=== PATIENT | female | born 1945 | race African-American/Black ===

== ENCOUNTER 2020-01-12 17:58 | Inpatient (IN) | payer OTHER ==
--- NOTE | 2020-01-12 18:06 | PDOC ---
History of Present Illness - General Chief Complaint: CVA/TIA Stated Complaint: POSSIBLE CVA Time Seen by Provider: 01/12/20 18:05 History Source: Patient Exam Limitations: No Limitations - History of Present Illness Initial Comments: 01/12/20 18:05 HPI 74 YOF with PMH asthma, seasonal allergies and HTN presenting with acute onset of left sided weakness/numbness/tingling described as "pins and needles" beginning approx 1 hour ago, last normal 5pm. at that time she came out of bathroom complaining of dizziness and feeling unwell, blurry vision. she came out and sat down due to her dizziness, her granddaughter found her appearing unwell and eyes in different directions. at 530pm, EMS came and found her to have progressively worsening left upper extremity weakness, pins and needles as well as left lower extremity weakness and difficulty walking. During this time, started leaning more to the left side collateral information from granddaughter and EMS no history of recent procedures no history of CVA or head bleed. no anticoagulant use. Denies fever, chills, chest pain, SOB, palpitation, dizziness, weakness, N, V, D, abdominal pain, bladder and bowel problems, focal weakness/paresthesias, leg swelling/pain, rash. No sick contacts or travel. No new changes in medications. Allergies: None Past Medical History/ asthma, seasonal allergies and HTN PSH: none Social history: Lives with family. No tobacco, ETOH or drug use. Meds: as documented in EMR Family history: noncontributory Review of systems Constitutional: no fevers or chills. +weakness HEENT: no headache No congestion. +dizziness, +blurry vision CVS: no cp or syncope. Resp: no sob. No cough. Gastrointestinal: no abdominal pain, nausea, vomiting, diarrhea. Genitourinary: no urinary sx, hematuria. MUSCULOSKELETAL: No joint pain and swelling. No neck or back pain. SKIN: no redness or skin changes, no discharge, no rash. No wounds. Hematologic: no easy bruising/bleeding. NEUROLOGIC: No headache, LOC or altered mental status. + weakness, numbness, +tingling and gait instability, +dizziness Psych: no anxiety or depression Allergic/Immunologic: medication allergies All other systems reviewed and negative, or as documented in HPI. Physical exam General: malaised appearing HEENT: NCAT, PERRL, EOMI, clear conjunctiva, anicteric, moist mucus membranes, clear oropharynx, no oral lesions.. vision is clear, no diplopia. Neck: neck supple, FROM Resp: CTAB, normal and even respirations, no respiratory distress CVS: irregularly irregular no murmurs, 2+ peripheral pulses throughout, no peripheral edema Abdomen: soft, NTND, no rebound or guarding. Back: nontender, normal inspection and ROM MSK: no edema, LORD x4, ROM intact. No clubbing or cyanosis. normal bulk and tone. Extremities: no calf tenderness Neuro: Alert, oriented to person time and place. No carotid bruit, CN II-XII grossly intact. no overt facial droop, furrowing of forehead present bilaterally. Sensation grossly intact to light touch. LORD x4. No cerebellar signs, no dysmetria, bilateral finger to nose equal and symmetric. Speech clear. +left pronator drift, 4/5 strength against resistance, does hold above gravity. +LLE drift, 3/5 strength, unable to hold against gravity. Psych: Calm and cooperative Skin: warm and well perfused, cap refill <2 sec, normal color, no rash or skin discoloration. 01/12/20 19:00 01/14/20 11:42 Past History - Medical History Allergies/Adverse Reactions: Allergies Allergy/AdvReac Type Severity Reaction Status Date / Time metoprolol succinate Allergy Intermediate Difficulty Verified 09/22/12 03:38 [From Toprol XL] Breathing shellfish derived Allergy Mild Difficulty Verified 09/22/12 03:38 Breathing Home Medications: Ambulatory Orders Albuterol Sulfate Inhaler - [Ventolin Hfa *Inhaler*] 1 - 2 inh IH QID 09/22/12 Cetirizine HCl [Zyrtec] 10 mg PO DAILY 09/22/12 Fluticasone Propionate [Flovent Hfa] 220 mcg IH BID 09/22/12 Ipratropium/Albuterol Sulfate [Duoneb 0.5 mg-3 mg/3 ml Soln] 3 ml IH BID #30 ampul.neb 09/22/12 NIFEdipine XL [Adalat Cc] 90 mg PO DAILY 09/22/12 predniSONE [Deltasone -] 20 mg PO BID #10 tablet 09/22/12 Asthma: Yes HTN: Yes - Immunization History Immunization Up to Date: No - Psycho-Social/Smoking History Smoking Status: No Smoking History: Never smoked Number of Cigarettes Smoked Daily: 0 NIH Stroke Scale - Last Known Well Date/Time & Onset Date Last Known Well: 01/12/20 Time Last Known Well: 17:45 - Initial Evaluation Level of consciousness: Alert Ask patient the month and their age: Answers both correctly Ask patient to open & close eyes; make fist and let go: Obeys both correctly Best gaze (horizontal eye movement): Normal Visual field testing: No visual field loss Facial paresis (Show teeth/raise eyebrows/close eyes tight): Normal symmetrical movement Motor Function: Left Arm: Drift Motor Function: Right Arm: Normal (extends arm 90 (or 45) degrees for 10 seconds without drift Motor Function: Left Leg: Some effort against gravity Motor Function: Right Leg: Normal (extends leg 30 degrees for 5 seconds without drift) Limb Ataxia: No ataxia Sensory(Use pinprick test arms,legs,trunk,face/side to side): Normal Best language (Describe picture, name items, read sentences): No Aphasia Dysarthria (read several words): Normal articulation Extinction and Inattention: No abnormality - Total Score NIH Stroke Scale Score: 3 tPA Exclusion Checklist 0-3hr - Time Elapsed Date last known well: 01/12/20 Time last known well: 17:00 Elaspsed time: 1 Day(s) and 18 Hour(s) and 42 Minutes - Thrombolytic Therapy Candidate Is the patient eligible for Thrombolytic Therapy?: Yes - Exclusion Criteria 0-3hr SBP greater than 185 or DBP greater than 110mmHg despite tx: No Recent IC/spinal surgery,head trauma or stroke w/in last 3mo: No Hx of previous IC hemorrhage, IC neoplasm, AVM or aneurysm: No Active internal bleeding: No Blding diathesis(low plt ct, inc PTT,INR>1.7 or use of NOAC): No Symptoms suggest subarachnoid hemorrhage: No CT demonstrates multilobar infarct(>1/3 cerebral hemiphere): No Arterial puncture at noncompressible site in previous 7 days: No Blood glucose concentration less than 50mg/dL (2.7mmol/L): No - Relative Exclusion Criteria 0-3h Care team unable to determine eligibility: No IV/IA thrombolysis/thrombectomy @ another hosp prior arrival: No Life expectancy <1yr/severe co-morbid illness/[employer]CHITECT on admit: No : No Patient/family refused: No Stroke severity too mild (non-disabling): No Recent acute TX (w/in previous 3 months): No Seizure at onset with postictal residual neuro impairments: No Major surgery or serious trauma w/in previous 14 days: No Recent GI or hemorrhage (w/in previous 21 days): No Heart Score/ECG Review #1 ECG reviewed & interpreted by me at: 18:20 Compared to previous ECG there are: Other 01/12/20 18:47 atrial fibrillation RVR at 135 bpm, narrow qrs, rate related changes, nonspecific T wave abnormalities likely 2/2 rate. normal axis. no st elevations or depressions Critical Care Time/MDM Note Total Critical Care Time: 60 (acute respiratory failure) Critical Care Statement: The care of this patient involved high complexity decision making to prevent further life threatening deterioration of the patient's condition and/or to evaluate & treat vital organ system(s) failure or risk of failure. - Medical Decision Making Note: 01/12/20 18:48 Vital Signs Temp Pulse Resp BP Pulse Ox 131 H 31 H 161/87 99 01/12/20 18:26 01/12/20 18:26 01/12/20 18:26 01/12/20 18:26 vitals reviewed tachy new onset Afib, no known history 161/81, will rate control with diltiazem 10mg IV x1 pt requires TPA NIHSS 3 based on her LUE and LLE sx. tpa for 84kg weight, 0.9mg/kg = 75.6 mg (10% in the first min and 90% over the next hour) BP can tolerate mildly hypertensive diltiazem will also help rate control Afib RVR CT head neg for acute intracranial pathology discussed risk and benefits and risks of bleeding with patient, given TPA indications. discussed with pt and family no contraindications for tpa, <3 hours of time neuro cs with Nieves, discussed case and agree with plan cards cs with Dr Rivera, agree with plan, rate control; AC after tpa and reassessment for management of afib and stroke prevention. ICU monitoring for the first 24 hour to monitor neuro checks/HD monitoring, s/p TPA ICU cs with Dr Stewart admitting to ICU 01/12/20 19:00 Discharge - Discharge Information Problems reviewed: Yes Clinical Impression/Diagnosis: Cerebrovascular accident (CVA) Qualifiers: CVA mechanism: unspecified Qualified Code(s): I63.9 - Cerebral infarction, unspecified Condition: Fair - Admission Yes - Follow up/Referral - Patient Discharge Instructions - Post Discharge Activity
[2020-01-12] MEDS ORDERED: SODIUM CHLORIDE 1,000 ML IV SCH ×2 (18:15→18:30)
[2020-01-12] MEDS ORDERED: ALTEPLASE BOLUS IVPUSH ONE (18:23)
[2020-01-12] MEDS ORDERED: ALTEPLASE 100 MG VIAL IVPB ONE (18:23)
[2020-01-12 18:30] LABS: BASO % 0.9 % (0-2.0); HEMATOCRIT 41.7 % (32.4-45.2); HEMOGLOBIN 13.7 GM/dL (10.7-15.3); LYMPH % 27.2 % (8-40); MCH 30.2 pg (25.7-33.7); MCHC 32.8 g/dl (32.0-36.0); MEAN CELL VOLUME 92.1 fl (80-96); MEAN PLT VOLUME 10.2 fl (7.5-11.1); MONO % 7.9 % (3.8-10.2); PLATELET COUNT 274 K/MM3 (134-434); RBC 4.53 M/mm3 (3.60-5.2); RDW 14.4 % (11.6-15.6); WHITE BLOOD COUNT 7.6 K/mm3 (4.0-10.0)
[2020-01-12] MEDS ORDERED: ALTEPLASE 100MG 100 MG ONE (18:38)
[2020-01-12 18:43] LABS: INR 0.93 (0.83-1.09)
[2020-01-12 18:45] LABS: ACTIVATED PTT 26.9 SECONDS (25.2-36.5)
[2020-01-12] MEDS ORDERED: dilTIAZem HCL 50 MG/10 ML - 10 ML VIAL IVPUSH ONE (18:57)
[2020-01-12 19:01] LABS: CHOLESTEROL 227 mg/dL (50-200); HDL CHOLESTEROL 87 mg/dL (40-60); LDL CHOLESTEROL (ONLY SJRH) 116 mg/dL (5-100); TRIGLYCERIDES 173 mg/dL (0-150)
[2020-01-12 19:05] LABS: ALBUMIN 3.4 g/dl (3.4-5.0); ALK PHOS 117 U/L (45-117); ANION GAP 8 MMOL/L (8-16); BILIRUBIN,TOTAL 0.4 mg/dL (0.2-1); BLOOD UREA NITROGEN 18.9 mg/dL (7-18); CHLORIDE 107 mmol/L (98-107); CO2 24 mmol/L (21-32); CREATININE 1.4 mg/dL (0.55-1.3); GLUCOSE,RANDOM 130 mg/dL (74-106); POTASSIUM 3.9 mmol/L (3.5-5.1); SGOT/AST 17 U/L (15-37); SGPT/ALT 19 U/L (13-61); SODIUM 139 mmol/L (136-145); TOT PROT 8.1 g/dl (6.4-8.2)
[2020-01-12] MEDS ORDERED: dilTIAZem HCL 125 MG/25 ML - 25 ML VIAL ONE (19:11)
[2020-01-12 19:13] LABS: EPI CELLS 33 /uL (0-25.1); HYALINE CASTS 4 /uL (0-3.1); URINE APPEARANCE CLEAR; URINE BACTERIA 16 /uL (0-1359); URINE BILIRUBIN NEGATIVE (NEGATIVE); URINE COLOR YELLOW; URINE GLUCOSE (UA) NEGATIVE (NEGATIVE); URINE KETONE TRACE (NEGATIVE); URINE LEUK ESTERASE 1+ (NEGATIVE); URINE NITRITE NEGATIVE (NEGATIVE); URINE PROTEIN 2+ (NEGATIVE); URINE RBC 9 /uL (0-23.9); URINE WBC 5 /uL (0-25.8)
--- NOTE | 2020-01-12 19:50 | CONSULT ---
Consult - text type - Consultation Consultation Note: NEUROLOGY CONSULTATION is greatly appreciated: Events reviewed and discussed with Dr. Lennon. 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 At 5 PM she became dizzy and unsteady ambulating to the bathroom. She then developed left sided numbness and weakness. CT of head (reviewed): Normal EKG shows new-onset AFib. AIRAM: BP=15/80. Cor irreg/irreg. No carotid bruits. Normal pulses all 4's NEURO: Awake, alert, Ox3. MS/speech:normal CN II-XII: Dense left homonomous hemianopsia. Mild left facial weakness. Motor: Mild left drift. Min. Left ankle dorsiflexion weakness. Sl increased reflexes left. Left Babinski. Coord: No FTN dystaxia Sensory: Extinguishes double simultaneous stimulation (DSS) left arm and leg. Gait deferred IMP: Acute right parietoocipital dysfunction c/w acute CVA Probably embolic due to new onset AFib PLAN: t-PA as discussed Control systolic BP (110-130 range) ICU x 24 hours Cardiology consult in the AM Anticoagulation at 24 hours after t-PA. Thank you very much, Anderson Pickett MD
--- NOTE | 2020-01-12 20:30 | CONSULT ---
Consultation: REQUESTING PROVIDER: CONSULT REQUEST: We have been asked to medically evaluate this patient for stroke s/p tPA. HISTORY OF PRESENT ILLNESS: 74yo F with PMHx of HTN, asthma, seasonal allergies, and new diagnosis of atrial fibrillation that noticed some L arm weakness at home that progressed to L leg weakness, visual deficits, and difficulties with articulation. Last known normal was at 5pm and EMS arrived by 5.30pm. Upon arrival at the ED, patient was deemed a candidate for tPA and drip was started at 18:24pm. At bedside, patient was speaking in full sentences, was in no acute distress, but was a bit worried because she could not find her son (he ended up leaving to hospital to picker and packer h is fiancee from work). NIHSS 6. Patient denied any fevers, chills, headaches, pain, abdominal discomfort, NVD, issues with urination or defection. REVIEW OF SYSTEMS: CONSTITUTIONAL: as per above PHYSICAL EXAMINATION Vital Signs - 24 hr 01/12/20 01/12/20 01/12/20 18:26 18:35 18:54 Temperature 97.8 F 98.0 F Pulse Rate 131 H 129 H Pulse Rate [ 129 H Left Radial] Respiratory 31 H 38 H 20 Rate Blood Pressure 161/87 139/90 Blood Pressure 139/90 [Left Arm] O2 Sat by Pulse 99 99 97 Oximetry (%) 01/12/20 01/12/20 01/12/20 19:06 19:07 19:13 Temperature 98.0 F Pulse Rate Pulse Rate [ 130 H 122 H Left Radial] Respiratory 25 H 20 20 Rate Blood Pressure Blood Pressure 152/76 152/76 [Left Arm] O2 Sat by Pulse 99 99 99 Oximetry (%) 01/12/20 19:15 Temperature Pulse Rate Pulse Rate [ 95 H Left Radial] Respiratory Rate Blood Pressure Blood Pressure [Left Arm] O2 Sat by Pulse Oximetry (%) GENERAL: Awake, alert, and fully oriented, in no acute distress, appears stated age HEAD: Normal with no signs of trauma, symmetric smile, poor dentition. EYES: Pupils equal, round and reactive to light, extraocular movements intact, sclera anicteric, no lid lag EARS: R ear with skin irritation surrounding earring hole LUNGS: equal and CTAB. No wheezes, and no crackles. No accessory muscle use. HEART: irregular, S1 and S2 audible ABDOMEN: distended, mildly rigid and some added distension in upper midepigastric area, active BS, no guarding UPPER EXTREMITIES: warm to touch, no edema noted, some generalized weakness (appropriate given age) and drift bilaterally L>R LOWER EXTREMITIES: warm to touch, no edema, mild weakness in R leg and extensive weakness in L leg. normal sensation NEUROLOGICAL: Cranial nerves II-XII intact. Normal speech. Normal gait. PSYCHIATRIC: Cooperative. Good eye contact. Appropriate mood and affect given circumstances i.e. mildly anxious SKIN: Warm, no rashes or lesions noted, sensation intact and equal bilaterally Laboratory Results - last 24 hr 01/12/20 01/12/20 01/12/20 18:15 18:15 18:15 WBC 7.6 RBC 4.53 Hgb 13.7 Hct 41.7 D MCV 92.1 MCH 30.2 MCHC 32.8 RDW 14.4 Plt Count 274 MPV 10.2 Absolute Neuts (auto) 4.9 Neutrophils % 64.0 Lymphocytes % 27.2 D Monocytes % 7.9 Eosinophils % 0.0 D Basophils % 0.9 Nucleated RBC % 0 PT with INR 11.00 INR 0.93 PTT (Actin FS) 26.9 Sodium Potassium Chloride Carbon Dioxide Anion Gap BUN Creatinine Est GFR (CKD-EPI)AfAm Est GFR (CKD-EPI)NonAf Random Glucose Calcium Total Bilirubin AST ALT Alkaline Phosphatase Creatine Kinase Troponin I Total Protein Albumin Triglycerides 173 H Cholesterol 227 H Total LDL Cholesterol 116 H HDL Cholesterol 87 H TSH Urine Color Urine Appearance Urine pH Ur Specific [place] Urine Protein Urine Glucose (UA) Urine Ketones Urine Blood Urine Nitrite Urine Bilirubin Urine Urobilinogen Ur Leukocyte Esterase Urine WBC (Auto) Urine RBC (Auto) Urine Casts (Auto) U Pathogenic Cast Auto U Epithel Cells (Auto) Urine Bacteria (Auto) Blood Type Antibody Screen 01/12/20 01/12/20 01/12/20 18:15 18:15 18:34 WBC RBC Hgb Hct MCV MCH MCHC RDW Plt Count MPV Absolute Neuts (auto) Neutrophils % Lymphocytes % Monocytes % Eosinophils % Basophils % Nucleated RBC % PT with INR INR PTT (Actin FS) Sodium 139 Potassium 3.9 Chloride 107 Carbon Dioxide 24 Anion Gap 8 BUN 18.9 H Creatinine 1.4 H Est GFR (CKD-EPI)AfAm 42.49 Est GFR (CKD-EPI)NonAf 36.66 Random Glucose 130 H Calcium 9.0 Total Bilirubin 0.4 AST 17 ALT 19 Alkaline Phosphatase 117 Creatine Kinase 80 Troponin I < 0.02 Total Protein 8.1 Albumin 3.4 Triglycerides Cancelled Cholesterol Cancelled Total LDL Cholesterol Cancelled HDL Cholesterol Cancelled TSH 3.44 Urine Color Yellow Urine Appearance Clear Urine pH 5.0 Ur Specific [place] 1.020 Urine Protein 2+ H Urine Glucose (UA) Negative Urine Ketones Trace H Urine Blood Negative Urine Nitrite Negative Urine Bilirubin Negative Urine Urobilinogen 1.0 Ur Leukocyte Esterase 1+ H Urine WBC (Auto) 5 Urine RBC (Auto) 9 Urine Casts (Auto) 4 U Pathogenic Cast Auto 1-3 U Epithel Cells (Auto) 33 Urine Bacteria (Auto) 16 Blood Type O POSITIVE Antibody Screen Negative Active Medications Generic Name Dose Route Start Last Admin Trade Name Freq PRN Reason Stop Dose Admin Sodium Chloride 1,000 mls @ 42 mls/hr 01/12/20 18:15 Normal Saline - IV ASDIR ANNAMARIA Sodium Chloride 1,000 mls @ 50 mls/hr 01/12/20 18:30 01/12/20 18:59 Normal Saline - IV 01/13/20 18:24 50 mls/hr ASDIR ANNAMARIA Administration ASSESSMENT/PLAN: 74yo F with PMHx of HTN, asthma, and new diagnosis of atrial fibrillation presented L sided weakness due to a stroke, received tPA and admitted to ICU for 24h post-tPA monitoring. #Neuro: stroke s/p tPA in ED - head CT without acute bleed - continue monitoring patient for changes in MS or possible bleeding - dysphagia, aspiration, and fall precautions - neurology following #Cardio: HTN afib HLD hypertriglyceridemia - received diltiazem in ED - start statin - will need eliquis 24h after tPA - cardiology following - start rate control as hemodynamics permit #Pulm hx of asthma - resume home dose bronchodilators #Renal CKD - Cr 1.4 -- baseline #ID no acute concerns - afebrile, CBC WNL, UA unremarkable - COVID pending #GI/ no acute concerns #Heme continue monitoring for bleed #FEN - IVF 50 NS - NPO - replete lytes PRN -- NO NEEDLE STICK #LTD NO NEEDLE STICK, NO RENDON, NO NG TUBE DUE TO RISK OF BLEEDING Dispo: We will continue to follow the patient. Thank you for this consultative opportunity. Visit type - Emergency Visit Emergency Visit: Yes ED Registration Date: 01/12/20 Care time: The patient presented to the Emergency Department on the above date and was hospitalized for further evaluation of their emergent condition. - New Patient This patient is new to me today: Yes Date on this admission: 01/12/20 - Critical Care Critical Care patient: Yes Total Critical Care Time (in minutes): 37 Critical Care Statement: The care of this patient involved high complexity decision making to prevent further life threatening deterioration of the patient's condition and/or to evaluate & treat vital organ system(s) failure or risk of failure. ATTENDING PHYSICIAN STATEMENT I saw and evaluated the patient. I reviewed the resident's note and discussed the case with the resident. I agree with the resident's findings and plan as documented. SUBJECTIVE: OBJECTIVE: ASSESSMENT AND PLAN:
[2020-01-12] MEDS: ROSUVASTATIN CA 20 MG TABLET (FP) PO SCH (22:05)
[2020-01-12] MEDS ORDERED: NICARDIPINE 25 MG in DEXTROSE 5%-WATER - 240 ML IVPB SCH (23:00)
--- NOTE | 2020-01-13 09:19 | EKG ---
Test Reason : Blood Pressure : / mmHG Vent. Rate : 135 BPM Atrial Rate : 163 BPM P-R Int : 000 ms QRS Dur : 066 ms QT Int : 286 ms P-R-T Axes : 000 067 213 degrees QTc Int : 429 ms ATRIAL FIBRILLATION WITH RAPID VENTRICULAR RESPONSE WITH PREMATURE VENTRICULAR OR ABERRANTLY CONDUCTED COMPLEXES CANNOT RULE OUT ANTERIOR INFARCT , AGE UNDETERMINED ABNORMAL ECG WHEN COMPARED WITH ECG OF 12-AUG-2008 00:27, ATRIAL FIBRILLATION HAS REPLACED SINUS RHYTHM VENT. RATE HAS INCREASED BY [address] NOW DEPRESSED IN INFERIOR LEADS ST NOW DEPRESSED IN ANTERIOR LEADS T WAVE INVERSION NOW EVIDENT IN INFERIOR LEADS Confirmed by BRADLEY WARNER MD ([id number]) on 01/13/2020 9:18:42 AM Referred By: Confirmed By:BRADLEY WARNER MD
[2020-01-13] MEDS ORDERED: NIFEdipine E.R. 90 MG TABLET PO SCH (10:00)
--- NOTE | 2020-01-13 10:58 | CONSULT ---
Admitting History and Physical - Primary Care Physician PCP: David Stewart MD - Admission History of Present Illness: 74 yo RH woman, with PMH of HTN and asthma, admitted following feeling dizzy and unsteady,developed left sided numbness and weakness. CT of head: Normal Neurology IMP: Acute right parietoocipital dysfunction c/w acute CVA Probably embolic due to new onset AFib t-PA Passed Dysphagia screen x 2. NPO, po meds ordered. Selected Entries 01/13/20 01/13/20 01/13/20 00:00 00:30 01:30 Pulse Rate 92 H 97 H 95 H Blood Pressure 147/99 151/87 141/88 O2 Sat by Pulse 115 H 99 99 Oximetry (%) Oxygen Delivery Method Bowel Movement 01/13/20 01/13/20 01/13/20 02:00 02:30 03:30 Pulse Rate 98 H 98 H 94 H Blood Pressure 145/80 136/77 138/87 O2 Sat by Pulse 98 100 98 Oximetry (%) Oxygen Delivery Method Bowel Movement 01/13/20 01/13/20 01/13/20 04:00 04:30 05:30 Pulse Rate 92 H 93 H 92 H Blood Pressure 146/83 133/91 146/83 O2 Sat by Pulse 92 L 98 98 Oximetry (%) Oxygen Delivery Method Bowel Movement 01/13/20 01/13/20 01/13/20 06:00 06:30 07:00 Pulse Rate 88 88 82 Blood Pressure 133/84 133/84 132/70 O2 Sat by Pulse 88 L 99 100 Oximetry (%) Oxygen Delivery Method Bowel Movement No 01/13/20 01/13/20 01/13/20 08:00 08:35 09:00 Pulse Rate 83 99 H Blood Pressure 133/75 134/83 O2 Sat by Pulse 100 100 99 Oximetry (%) Oxygen Delivery Room Air Method Bowel Movement 01/13/20 01/13/20 10:00 10:32 Pulse Rate 99 H 88 Blood Pressure 138/85 138/85 O2 Sat by Pulse 99 Oximetry (%) Oxygen Delivery Method Bowel Movement Laboratory Tests 01/12/20 18:15 WBC 7.6 Limitations to Obtaining History: No Limitations - Smoking History Smoking history: Never smoked Have you smoked in the past 12 months: No Aproximately how many cigarettes per day: 0 History - Admission Reason For Visit: CVA - Diagnostics X-ray: Report Reviewed CT Scan: Report Reviewed - General Mental Status: Alert and Oriented, Awake and Alert, Able to Follow Commands Attention: Intact Ability to Follow Directions: Excellent Head/Neck Control: WFL - Hearing Hearing: Normal Hearing Aide: No With Patient: No Speech Evaluation - Communication Primary Language: KHMER Communication: Yes: Within Normal Limits Oral Expression Ability: Yes: No Impairment - Speech Characteristics Speech Pattern: Normal Speech Clarity: < 100% Nasal Resonance: Normal Articulation: Yes: Precise Rate of Speech: Intact - Language/Auditory Comprehension Follows: Yes: 2 Stage Simple Commands - Language/Verbal Expression Able to Respond to Simple Queries: Yes: WNL Able to Communicate Wants and Needs: Yes: WNL Functional Communication Status: Yes: WNL - Memory/Perception Hemaniopsia: Yes: Left (Dense left homonomous hemianopsia.) - Swallow Evaluation/Bedside Assessment Current Nutritional Intake: NPO, Other (PO medication ordered) Oral Secretions: Yes: WFL Against Resistance Opening: Normal Against Resistance Closing: Normal Lingual Movement: Normal, Symmetric Lingual Speed of Movement: Normal Lingual Movement Strgth Against Opposition: Normal Lingual Movement Characteristics: Normal Velopharyngeal Movement: Normal Laryngeal Elevation: WFL Laryngeal Movement: Able to Palpate Rate of Intake: WFL Bolus Size: WFL Labial Seal: WFL Chewing: WFL Oral Prep Time: WFL A-P Transit: WFL Pocketing: None Timing of Swallow: WFL Coughing/Throat Clear: No Change in Voice: No Recommendations - Speech Evaluation, Impression/Plan Impression: Sp/sw/lang/congition intact. TPA. Passed Dysphagia screen x 2. Covid pending - Dysphagia Impressions/Plan Swallowing Skills: WFL Dysphagia Impressions: No Impairment *Silent aspiration: cannot be R/O at bedside Dysphagia Treatment Plan: Elevate HOB during feed Recommendations: Other (monitor tolerance) - Recommendations Diet Consistency: Regular Medication Administration: Whole with water Liquids: Thin Liquids
--- NOTE | 2020-01-13 11:19 | CON.CARD ---
Cardiology Consult (text) - Consultation Consultation Note: cc: left weakness, numbness hpi: 74 f hx htn, here with left sided weakness, numbness. No cp sob palps loc pnd orthopnea le edema. Had some mild dizzy with sxs also. Found to have acute cva, now s/p tpa. Also found to have new afib with rvr. Feeling well now, strength returning. pmh: per hpi psh: none social:no tob fam: no premature cad, scd ros: per hpi; all others nl meds: Home Medications Medication Instructions Recorded Albuterol Sulfate Inhaler - 1 - 2 inh IH QID 09/22/12 [Ventolin Hfa *Inhaler*] Cetirizine HCl [Zyrtec] 10 mg PO DAILY 09/22/12 Fluticasone Propionate [Flovent 220 mcg IH BID 09/22/12 Hfa] Ipratropium/Albuterol Sulfate 3 ml IH BID #30 ampul.neb 09/22/12 [Duoneb 0.5 mg-3 mg/3 ml Soln] NIFEdipine XL [Adalat Cc] 90 mg PO DAILY 09/22/12 predniSONE [Deltasone -] 20 mg PO BID #10 tablet 09/22/12 pe: Vital Signs Period Temp Pulse Resp BP Sys/Sanders Pulse Ox Last 24 Hr 97.8 F-98.0 F 74-131 15-38 105-161/70-142 88-115 nad no jvd irreg, s1 s2 no mrg cta bl nl eff aao3 no le e/c/c abd nt nd pos bs no jaundice diaphoresis pos dp pt no carotid bruits Laboratory Last Values WBC 7.6 K/mm3 (4.0-10.0) 01/12/20 18:15 RBC 4.53 M/mm3 (3.60-5.2) 01/12/20 18:15 Hgb 13.7 GM/dL (10.7-15.3) 01/12/20 18:15 Hct 41.7 % (32.4-45.2) D 01/12/20 18:15 MCV 92.1 fl (80-96) 01/12/20 18:15 MCH 30.2 pg (25.7-33.7) 01/12/20 18:15 MCHC 32.8 g/dl (32.0-36.0) 01/12/20 18:15 RDW 14.4 % (11.6-15.6) 01/12/20 18:15 Plt Count 274 K/MM3 (134-434) 01/12/20 18:15 MPV 10.2 fl (7.5-11.1) 01/12/20 18:15 Absolute Neuts (auto) 4.9 K/mm3 (1.5-8.0) 01/12/20 18:15 Neutrophils % 64.0 % (42.8-82.8) 01/12/20 18:15 Lymphocytes % 27.2 % (8-40) D 01/12/20 18:15 Monocytes % 7.9 % (3.8-10.2) 01/12/20 18:15 Eosinophils % 0.0 % (0-4.5) D 01/12/20 18:15 Basophils % 0.9 % (0-2.0) 01/12/20 18:15 Nucleated RBC % 0 % (0-0) 01/12/20 18:15 PT with INR 11.00 SEC (9.7-13.0) 01/12/20 18:15 INR 0.93 (0.83-1.09) 01/12/20 18:15 PTT (Actin FS) 26.9 SECONDS (25.2-36.5) 01/12/20 18:15 Sodium 139 mmol/L (136-145) 01/12/20 18:15 Potassium 3.9 mmol/L (3.5-5.1) 01/12/20 18:15 Chloride 107 mmol/L (98-107) 01/12/20 18:15 Carbon Dioxide 24 mmol/L (21-32) 01/12/20 18:15 Anion Gap 8 MMOL/L (8-16) 01/12/20 18:15 BUN 18.9 mg/dL (7-18) H 01/12/20 18:15 Creatinine 1.4 mg/dL (0.55-1.3) H 01/12/20 18:15 Est GFR (CKD-EPI)AfAm 42.49 01/12/20 18:15 Est GFR (CKD-EPI)NonAf 36.66 01/12/20 18:15 Random Glucose 130 mg/dL (74-106) H 01/12/20 18:15 Calcium 9.0 mg/dL (8.5-10.1) 01/12/20 18:15 Total Bilirubin 0.4 mg/dL (0.2-1) 01/12/20 18:15 AST 17 U/L (15-37) 01/12/20 18:15 ALT 19 U/L (13-61) 01/12/20 18:15 Alkaline Phosphatase 117 U/L (45-117) 01/12/20 18:15 Creatine Kinase 80 U/L (26-192) 01/12/20 18:15 Troponin I < 0.02 ng/ml (0.00-0.05) 01/12/20 18:15 Total Protein 8.1 g/dl (6.4-8.2) 01/12/20 18:15 Albumin 3.4 g/dl (3.4-5.0) 01/12/20 18:15 Triglycerides 173 mg/dL (0-150) H 01/12/20 18:15 Triglycerides Cancelled 01/12/20 18:15 Cholesterol 227 mg/dL (50-200) H 01/12/20 18:15 Cholesterol Cancelled 01/12/20 18:15 Total LDL Cholesterol 116 mg/dL (5-100) H 01/12/20 18:15 Total LDL Cholesterol Cancelled 01/12/20 18:15 HDL Cholesterol 87 mg/dL (40-60) H 01/12/20 18:15 HDL Cholesterol Cancelled 01/12/20 18:15 TSH 3.44 uIU/ml (0.358-3.74) 01/12/20 18:15 Urine Color Yellow 01/12/20 18:34 Urine Appearance Clear 01/12/20 18:34 Urine pH 5.0 (5.0-8.0) 01/12/20 18:34 Ur Specific [place] 1.020 (1.010-1.035) 01/12/20 18:34 Urine Protein 2+ (NEGATIVE) H 01/12/20 18:34 Urine Glucose (UA) Negative (NEGATIVE) 01/12/20 18:34 Urine Ketones Trace (NEGATIVE) H 01/12/20 18:34 Urine Blood Negative (NEGATIVE) 01/12/20 18:34 Urine Nitrite Negative (NEGATIVE) 07/15/20 18:34 Urine Bilirubin Negative (NEGATIVE) 01/12/20 18:34 Urine Urobilinogen 1.0 mg/dL (0.2-1.0) 01/12/20 18:34 Ur Leukocyte Esterase 1+ (NEGATIVE) H 01/12/20 18:34 Urine WBC (Auto) 5 /uL (0-25.8) 01/12/20 18:34 Urine RBC (Auto) 9 /uL (0-23.9) 01/12/20 18:34 Urine Casts (Auto) 4 /uL (0-3.1) 01/12/20 18:34 U Pathogenic Cast Auto 1-3 /lpf (NEGATIVE) 01/12/20 18:34 U Epithel Cells (Auto) 33 /uL (0-25.1) 01/12/20 18:34 Urine Bacteria (Auto) 16 /uL (0-1359) 01/12/20 18:34 Blood Type O POSITIVE 01/12/20 18:15 Antibody Screen Negative 01/12/20 18:15 tele: afib, rate ok cxr: no sig chf ecg: afib with rvr, nl qtc, no ischemic changes a/p: 74 f hx htn, here with cva, new afib. cva: -s/p tpa, sxs improving -found to be in afib as well, start NOAC when ok by neuro -cont statin -echo pending afib: -new onset, rvr initially, rate improved now (got iv dilt). Will dc home nifed and change to dilt for rate control. Cont tele. Check echo. -start noac when ok by neuro htn: -Will dc home nifed and change to dilt for rate control. Bp improved, titrate off nicard gtt. parker: -cont ivfs, monitor cr
--- NOTE | 2020-01-13 13:39 | PN ---
Teaching Attending Note Name of Resident: Lili Vazquez ATTENDING PHYSICIAN STATEMENT I saw and evaluated the patient. I reviewed the resident's note and discussed the case with the resident. I agree with the resident's findings and plan as documented. SUBJECTIVE: Patient seen and examined in the ICU. Awake and alert. Denies CP or SOB. Reports that the "pins and needles" she was experiencing has now resolved. Intake & Output 01/10/20 01/11/20 01/12/20 01/13/20 23:59 23:59 23:59 23:59 Intake Total 125 475 Output Total 60 1550 Balance 65 -1075 Weight 189 lb 13.088 oz Last Vital Signs Temp Pulse Resp BP Pulse Ox 98.0 F 88 18 139/83 98 01/12/20 19:06 01/13/20 11:00 01/13/20 11:00 01/13/20 11:00 01/13/20 11:00 Active Medications Diltiazem HCl (Cardizem Cd -) 180 mg PO DAILY [facility] Sodium Chloride (Normal Saline -) 1,000 mls @ 42 mls/hr IV ASDIR ANNAMARIA Last Admin: 01/12/20 22:04 Dose: 42 mls/hr Documented by: Sodium Chloride (Normal Saline -) 1,000 mls @ 50 mls/hr IV ASDIR ANNAMARIA Stop: 01/13/20 18:24 Last Admin: 01/12/20 18:59 Dose: 50 mls/hr Documented by: Rosuvastatin Calcium (Crestor -) 40 mg PO HS [facility] Last Admin: 01/12/20 22:05 Dose: 40 mg Documented by: GENERAL: Awake, alert, and fully oriented, in no acute distress HEAD: Normal with no signs of trauma. EYES: Pupils equal, round and reactive to light, extraocular movements intact, sclera anicteric, no lid lag EARS: R ear with skin irritation surrounding earring hole LUNGS: equal and CTAB. No wheezes, and no crackles. No accessory muscle use. HEART: irregular, S1 and S2 audible ABDOMEN: distended, mildly rigid and some added distension in upper midepigastric area, active BS, no guarding UPPER EXTREMITIES: warm to touch, no edema noted, some generalized weakness (appropriate given age) and drift bilaterally L>R LOWER EXTREMITIES: warm to touch, no edema, mild weakness in R leg and extensive weakness in L leg. normal sensation NEUROLOGICAL: Non-focal. PSYCHIATRIC: Cooperative. Good eye contact. Appropriate mood and affect given circumstances SKIN: Warm, no rashes or lesions noted, sensation intact and equal bilaterally Laboratory Results - last 24 hr 01/12/20 01/12/20 01/12/20 18:15 18:15 18:15 WBC 7.6 RBC 4.53 Hgb 13.7 Hct 41.7 D MCV 92.1 MCH 30.2 MCHC 32.8 RDW 14.4 Plt Count 274 MPV 10.2 Absolute Neuts (auto) 4.9 Neutrophils % 64.0 Lymphocytes % 27.2 D Monocytes % 7.9 Eosinophils % 0.0 D Basophils % 0.9 Nucleated RBC % 0 PT with INR 11.00 INR 0.93 PTT (Actin FS) 26.9 Sodium Potassium Chloride Carbon Dioxide Anion Gap BUN Creatinine Est GFR (CKD-EPI)AfAm Est GFR (CKD-EPI)NonAf Random Glucose Calcium Total Bilirubin AST ALT Alkaline Phosphatase Creatine Kinase Troponin I Total Protein Albumin Triglycerides 173 H Cholesterol 227 H Total LDL Cholesterol 116 H HDL Cholesterol 87 H TSH Urine Color Urine Appearance Urine pH Ur Specific [place] Urine Protein Urine Glucose (UA) Urine Ketones Urine Blood Urine Nitrite Urine Bilirubin Urine Urobilinogen Ur Leukocyte Esterase Urine WBC (Auto) Urine RBC (Auto) Urine Casts (Auto) U Pathogenic Cast Auto U Epithel Cells (Auto) Urine Bacteria (Auto) Blood Type Antibody Screen 01/12/20 01/12/20 01/12/20 18:15 18:15 18:34 WBC RBC Hgb Hct MCV MCH MCHC RDW Plt Count MPV Absolute Neuts (auto) Neutrophils % Lymphocytes % Monocytes % Eosinophils % Basophils % Nucleated RBC % PT with INR INR PTT (Actin FS) Sodium 139 Potassium 3.9 Chloride 107 Carbon Dioxide 24 Anion Gap 8 BUN 18.9 H Creatinine 1.4 H Est GFR (CKD-EPI)AfAm 42.49 Est GFR (CKD-EPI)NonAf 36.66 Random Glucose 130 H Calcium 9.0 Total Bilirubin 0.4 AST 17 ALT 19 Alkaline Phosphatase 117 Creatine Kinase 80 Troponin I < 0.02 Total Protein 8.1 Albumin 3.4 Triglycerides Cancelled Cholesterol Cancelled Total LDL Cholesterol Cancelled HDL Cholesterol Cancelled TSH 3.44 Urine Color Yellow Urine Appearance Clear Urine pH 5.0 Ur Specific [place] 1.020 Urine Protein 2+ H Urine Glucose (UA) Negative Urine Ketones Trace H Urine Blood Negative Urine Nitrite Negative Urine Bilirubin Negative Urine Urobilinogen 1.0 Ur Leukocyte Esterase 1+ H Urine WBC (Auto) 5 Urine RBC (Auto) 9 Urine Casts (Auto) 4 U Pathogenic Cast Auto 1-3 U Epithel Cells (Auto) 33 Urine Bacteria (Auto) 16 Blood Type O POSITIVE Antibody Screen Negative ASSESSMENT/PLAN: Acute CVA likely embolic S/P tPA HTN Asthma New Afib fibrillation Maintain SBP <150 Strict I & O Statin Supplemental O2 as needed Follow Neuro exam No arterial sticks Rate control AC after 24 hours post tPA if stable ICU monitoring Dr Verma
--- NOTE | 2020-01-13 16:45 | ECHO ---
Name: AZALIA WILKINS Exam:Adult Echocardiogram Study Date: 01/13/2020 03:11 PM Age: 74 yrs Reason For Study: r/o LV Dysfunction Height: 65 in Weight: 189 lb BSA: 1.9 m2 MMode/2D Measurements & Calculations IVSd: 1.1 cm Ao root diam: 3.0 cm LVIDd: 4.1 cm LA dimension: 3.9 cm LVIDs: 2.7 cm ACS: 1.9 cm LVPWd: 0.92 cm EDV(Teich): 73.1 ml LVOT diam: 2.0 cm ESV(Teich): 26.6 ml LAV (MOD-bp): 71.0 ml TAPSE: 1.5 cm RV S David: 14.5 cm/sec Doppler Measurements & Calculations MV E max david: 83.3 cm/sec Ao V2 max: 129.0 cm/sec MV A max david: 46.3 cm/sec Ao max P.7 mmHg MV E/A: 1.8 Ao V2 mean: 85.0 cm/sec MV dec time: 0.19 sec Ao mean P.4 mmHg Ao V2 VTI: 21.6 cm CATHERINE(I,D): 2.3 cm2 CATHERINE(V,D): 2.3 cm2 LV V1 max P.1 mmHg SV(LVOT): 49.3 ml LV V1 mean P.0 mmHg LV V1 max: 101.2 cm/sec LV V1 mean: 66.0 cm/sec LV V1 VTI: 16.5 cm TR max david: 226.7 cm/sec PA V2 max: 67.9 cm/sec TR max P.1 mmHg PA max P.8 mmHg PA acc slope: 628.8 cm/sec2 PA acc time: 0.12 sec Med Peak E' David: 4.4 cm/sec PA pr(Accel): 25.1 mmHg Med E/e': 19.0 Lat Peak E' David: 8.1 cm/sec Lat E/e': 10.3 Tech Comments TDS due to body habitus. Patient scanned supine. Procedure A complete two-dimensional transthoracic echocardiogram was performed (2D, M-mode, Doppler and color flow Doppler). Left Ventricle The left ventricular size, thickness and function are normal. Ejection Fraction = 60-65%. The left ve ntricular wall motion is normal. Right Ventricle The right ventricle is normal in size and function. Atria Normal left and right atrial size and function. The interatrial septum is intact with no evidence for an atrial septal defect. Mitral Valve There is no mitral regurgitation noted. Tricuspid Valve There is trace tricuspid regurgitation. There was insufficient TR detected to calculate RV systolic p ressure. Aortic Valve No hemodynamically significant valvular aortic stenosis. No aortic regurgitation is present. Pulmonic Valve There is no pulmonic valvular regurgitation. Great Vessels The aortic root is normal size. Pericardium/Pleura There is no pericardial effusion. Interpretation Summary The left ventricular size, thickness and function are normal The right ventricle is normal in size and function. There is trace tricuspid regurgitation. MD Leonidas Zepeda 01/13/2020 04:45 PM
--- NOTE | 2020-01-13 17:39 | PN ---
Physical Exam: SUBJECTIVE: Patient seen and examined, sleeping but easily aroused. She was feeling good. Started nicardipine drip overnight for BP goal 110-130 systolic per neuro recommendation. OBJECTIVE: Vital Signs Period Temp Pulse Resp BP Sys/Sanders Pulse Ox Last 24 Hr 97.8 F-98.6 F 74-131 15-38 105-161/70-142 88-115 GENERAL: Awake, alert, and fully oriented, in no acute distress, appears stated age HEAD: Normal with no signs of trauma, symmetric smile, poor dentition. EARS: R ear with skin irritation surrounding earring hole LUNGS: equal and CTAB. No wheezes, and no crackles HEART: irregular, S1 and S2 audible ABDOMEN: distended, mildly rigid and some added distension in upper midepigastric area, active BS, no guarding UPPER EXTREMITIES: warm to touch, no edema noted, some generalized weakness (appropriate given age) and drift bilaterally L>R LOWER EXTREMITIES: warm to touch, no edema, mild weakness in R leg and extensive weakness in L leg. normal sensation PSYCHIATRIC: Cooperative. Good eye contact. Appropriate mood and affect SKIN: Warm, no rashes or lesions noted, sensation intact and equal bilaterally Laboratory Results - last 24 hr 01/12/20 01/12/20 01/12/20 18:15 18:15 18:15 WBC 7.6 RBC 4.53 Hgb 13.7 Hct 41.7 D MCV 92.1 MCH 30.2 MCHC 32.8 RDW 14.4 Plt Count 274 MPV 10.2 Absolute Neuts (auto) 4.9 Neutrophils % 64.0 Lymphocytes % 27.2 D Monocytes % 7.9 Eosinophils % 0.0 D Basophils % 0.9 Nucleated RBC % 0 PT with INR 11.00 INR 0.93 PTT (Actin FS) 26.9 Sodium Potassium Chloride Carbon Dioxide Anion Gap BUN Creatinine Est GFR (CKD-EPI)AfAm Est GFR (CKD-EPI)NonAf Random Glucose Calcium Total Bilirubin AST ALT Alkaline Phosphatase Creatine Kinase Troponin I Total Protein Albumin Triglycerides 173 H Cholesterol 227 H Total LDL Cholesterol 116 H HDL Cholesterol 87 H TSH Urine Color Urine Appearance Urine pH Ur Specific [place] Urine Protein Urine Glucose (UA) Urine Ketones Urine Blood Urine Nitrite Urine Bilirubin Urine Urobilinogen Ur Leukocyte Esterase Urine WBC (Auto) Urine RBC (Auto) Urine Casts (Auto) U Pathogenic Cast Auto U Epithel Cells (Auto) Urine Bacteria (Auto) Blood Type Antibody Screen 01/12/20 01/12/20 01/12/20 18:15 18:15 18:34 WBC RBC Hgb Hct MCV MCH MCHC RDW Plt Count MPV Absolute Neuts (auto) Neutrophils % Lymphocytes % Monocytes % Eosinophils % Basophils % Nucleated RBC % PT with INR INR PTT (Actin FS) Sodium 139 Potassium 3.9 Chloride 107 Carbon Dioxide 24 Anion Gap 8 BUN 18.9 H Creatinine 1.4 H Est GFR (CKD-EPI)AfAm 42.49 Est GFR (CKD-EPI)NonAf 36.66 Random Glucose 130 H Calcium 9.0 Total Bilirubin 0.4 AST 17 ALT 19 Alkaline Phosphatase 117 Creatine Kinase 80 Troponin I < 0.02 Total Protein 8.1 Albumin 3.4 Triglycerides Cancelled Cholesterol Cancelled Total LDL Cholesterol Cancelled HDL Cholesterol Cancelled TSH 3.44 Urine Color Yellow Urine Appearance Clear Urine pH 5.0 Ur Specific [place] 1.020 Urine Protein 2+ H Urine Glucose (UA) Negative Urine Ketones Trace H Urine Blood Negative Urine Nitrite Negative Urine Bilirubin Negative Urine Urobilinogen 1.0 Ur Leukocyte Esterase 1+ H Urine WBC (Auto) 5 Urine RBC (Auto) 9 Urine Casts (Auto) 4 U Pathogenic Cast Auto 1-3 U Epithel Cells (Auto) 33 Urine Bacteria (Auto) 16 Blood Type O POSITIVE Antibody Screen Negative Active Medications Generic Name Dose Route Start Last Admin Trade Name Freq PRN Reason Stop Dose Admin Diltiazem HCl 180 mg 01/14/20 10:00 Cardizem Cd - PO DAILY ANNAMARIA Sodium Chloride 1,000 mls @ 42 mls/hr 01/12/20 18:15 01/12/20 22:04 Normal Saline - IV 42 mls/hr ASDIR ANNAMARIA Administration Sodium Chloride 1,000 mls @ 50 mls/hr 01/12/20 18:30 01/12/20 18:59 Normal Saline - IV 01/13/20 18:24 50 mls/hr ASDIR ANNAMARIA Administration Rosuvastatin Calcium 40 mg 01/12/20 22:00 01/12/20 22:05 Crestor - PO 40 mg HS ANNAMARIA Administration ASSESSMENT/PLAN: 74yo F with PMHx of HTN, asthma, and new diagnosis of atrial fibrillation presented L sided weakness due to a stroke, received tPA and admitted to ICU for 24h post-tPA monitoring. Starting eliquis 24h post tPA. #Neuro: stroke s/p tPA in ED - head CT without acute bleed - continue monitoring patient for changes in MS or possible bleeding - dysphagia, aspiration, and fall precautions - neurology following #Cardio: HTN afib HLD hypertriglyceridemia - started statin - starting eliquis - scheduled for 10pm - Echo showed normal EF with mild TR - Carotid doppler showed no obvious high grade stenosis - cardiology following #Pulm hx of asthma - resume home dose bronchodilators #Renal CKD - Cr 1.4 -- at baseline #ID no acute concerns - afebrile, CBC WNL, UA unremarkable - COVID pending #GI/ no acute concerns #Heme continue monitoring for bleed #FEN - d/c fluids - passed speech/swallow study - advanced to sodium restricted diet - replete lytes PRN Dispo: continue ICU monitoring Visit type - Emergency Visit Emergency Visit: Yes ED Registration Date: 01/12/20 Care time: The patient presented to the Emergency Department on the above date and was hospitalized for further evaluation of their emergent condition. - New Patient This patient is new to me today: No - Critical Care Critical Care patient: Yes Total Critical Care Time (in minutes): 37 Critical Care Statement: The care of this patient involved high complexity decision making to prevent further life threatening deterioration of the patient's condition and/or to evaluate & treat vital organ system(s) failure or risk of failure. ATTENDING PHYSICIAN STATEMENT I saw and evaluated the patient. I reviewed the resident's note and discussed the case with the resident. I agree with the resident's findings and plan as documented. SUBJECTIVE: OBJECTIVE: ASSESSMENT AND PLAN:
[2020-01-13] MEDS: ROSUVASTATIN CA 20 MG TABLET (FP) PO SCH (21:19)
[2020-01-13] MEDS: APIXABAN 5 MG TABLET PO SCH (21:19)
--- NOTE | 2020-01-13 23:01 | PN ---
Progress Note (short form) - Note Progress Note: NEUROLOGY PROGRESS: Events reviewed and discussed with ICU resident. Doing well s/p t-PA with full resolution of left-sided complaints. No Headache. Cardiology consultation read and appreciated. Starting on eliquis 5 mg BID tonight. BP's controlled on Diltiazem PO Still in AFib. EXAM: Awake, alert. MS/speech: Normal CN: Full confrontational rivera! No facial Motor: No drift. Normal strength. Normal reflexes. Toes downgoing. Sensory: Normal! Including DSS IMP: Normal neurological exam. Full resolution of right cerebral dysfunction (including visual field deficit!) s/p t-PA. SUGGEST: Agree completely with plan as outlined: Eliquis, diltiazem Neuro and cardiology f/u as out patient OK to transfer to Med/surgery. Thank you very much, Anderson Pickett MD
--- NOTE | 2020-01-14 06:24 | PN ---
Progress Note, Physician Chief Complaint: alert, oriented denies CP/SOB TELE: AF, controlled History of Present Illness: AF CVA HLD Non smoker - Current Medication List Current Medications: Active Medications Apixaban (Eliquis -) 5 mg PO BID [facility] Last Admin: 01/13/20 21:19 Dose: 5 mg Documented by: Diltiazem HCl (Cardizem Cd -) 180 mg PO DAILY [facility] Rosuvastatin Calcium (Crestor -) 40 mg PO HS [facility] Last Admin: 01/13/20 21:19 Dose: 40 mg Documented by: - Objective Vital Signs: Vital Signs Temperature 97.6 F 01/14/20 02:00 Pulse Rate 91 H 01/14/20 06:00 Respiratory Rate 11 01/14/20 06:00 Blood Pressure 152/62 01/14/20 06:00 O2 Sat by Pulse Oximetry (%) 91 L 01/14/20 06:00 Constitutional: Yes: No Distress Cardiovascular: Yes: Pulse Irregular Respiratory: Yes: CTA Bilaterally Gastrointestinal: Yes: Soft (nt) Edema: No Neurological: Yes: Alert, Oriented ...Motor Strength: WNL Labs: CBC, BMP 01/12/20 18:15 01/12/20 18:15 INR, PTT INR 0.93 (0.83-1.09) 01/12/20 18:15 Laboratory Tests 01/12/20 01/12/20 01/12/20 18:15 18:15 18:15 WBC 7.6 Hgb 13.7 Plt Count 274 INR 0.93 Sodium Potassium Creatinine Total LDL Cholesterol 116 H COVID-19 (MIGUEL ANGEL) 01/12/20 01/12/20 18:15 19:35 WBC Hgb Plt Count INR Sodium 139 Potassium 3.9 Creatinine 1.4 H Total LDL Cholesterol COVID-19 (MIGUEL ANGEL) Pending - ....Imaging EKG: Image Reviewed Assessment/Plan a/p: 74 f hx htn, here with cva, new afib. cva: -s/p tpa, sxs improving -found to be in afib as well, started NOAC after seen by Neurology -cont statin -echo normal, carotid US OK afib: -new onset, rvr initially, rate improved now (got iv dilt). Now on Cardizem CD -Outpt cardiology f/u htn: -BP trend seems well controlled parker: -cont ivfs, monitor cr
[2020-01-14 10:00] VITALS: BMI 31.4
[2020-01-14] MEDS: APIXABAN 5 MG TABLET PO SCH (10:03)
--- NOTE | 2020-01-14 10:39 | PN ---
Progress Note, RIPSAWYER - Note Progress Note: Selected Entries 01/13/20 01/14/20 01/14/20 22:00 00:00 02:00 Breakfast Supper NPO Temperature 97.6 F Blood Pressure 135/83 118/71 01/14/20 01/14/20 01/14/20 04:00 06:00 08:00 Breakfast Supper Temperature 97.9 F 97.6 F Blood Pressure 111/63 152/62 116/80 01/14/20 09:49 Breakfast 75% Supper Temperature Blood Pressure Laboratory Tests 01/12/20 01/12/20 18:15 19:35 WBC 7.6 COVID-19 (MIGUEL ANGEL) Pending On reg diet/thin liquid
--- NOTE | 2020-01-14 10:41 | PN ---
Progress Note, MEDICAL CLAIMS ANALYST - Note Progress Note: Selected Entries 01/13/20 01/13/20 01/13/20 00:00 00:30 01:30 Breakfast Supper Temperature Blood Pressure 147/99 151/87 141/88 01/13/20 01/13/20 01/13/20 02:00 02:30 03:30 Breakfast Supper Temperature Blood Pressure 145/80 136/77 138/87 01/13/20 01/13/20 01/13/20 04:00 04:30 05:30 Breakfast Supper Temperature Blood Pressure 146/83 133/91 146/83 01/13/20 01/13/20 01/13/20 06:00 06:30 07:00 Breakfast Supper Temperature Blood Pressure 133/84 133/84 132/70 01/13/20 01/13/20 01/13/20 08:00 09:00 10:00 Breakfast Supper Temperature Blood Pressure 133/75 134/83 138/85 01/13/20 01/13/20 01/13/20 10:32 11:00 12:00 Breakfast Supper Temperature 98.6 F Blood Pressure 138/85 139/83 132/86 01/13/20 01/13/20 01/13/20 13:00 14:00 15:00 Breakfast Supper Temperature 98.6 F Blood Pressure 137/91 125/75 123/71 01/13/20 01/13/20 01/13/20 16:00 17:00 18:00 Breakfast Supper Temperature 98.6 F Blood Pressure 130/72 130/77 136/77 01/13/20 01/13/20 01/13/20 19:00 20:00 22:00 Breakfast Supper NPO Temperature 98.4 F Blood Pressure 126/78 114/70 119/88 01/14/20 01/14/20 01/14/20 00:00 02:00 04:00 Breakfast Supper Temperature 97.6 F Blood Pressure 135/83 118/71 111/63 01/14/20 01/14/20 01/14/20 06:00 08:00 09:49 Breakfast 75% Supper Temperature 97.9 F 97.6 F Blood Pressure 152/62 116/80 Laboratory Tests 01/12/20 18:15 WBC 7.6 On Reg diet/thin no further f/u indicated
[2020-01-14 11:38] LABS: BASO % 0.4 % (0-2.0); HEMOGLOBIN 13.3 GM/dL (10.7-15.3); LYMPH % 22.9 % (8-40); MCHC 32.6 g/dl (32.0-36.0); MEAN CELL VOLUME 92.1 fl (80-96); MEAN PLT VOLUME 10.6 fl (7.5-11.1); MONO % 9.3 % (3.8-10.2); NEUT % 67.4 % (42.8-82.8); PLATELET COUNT 258 K/MM3 (134-434); RBC 4.45 M/mm3 (3.60-5.2); RDW 14.5 % (11.6-15.6); WHITE BLOOD COUNT 5.9 K/mm3 (4.0-10.0)
[2020-01-14 12:08] LABS: ALBUMIN 2.9 g/dl (3.4-5.0); BILIRUBIN,TOTAL 0.5 mg/dL (0.2-1); BLOOD UREA NITROGEN 15.9 mg/dL (7-18); CALCIUM 8.8 mg/dL (8.5-10.1); CREATININE 1.2 mg/dL (0.55-1.3); MAGNESIUM 1.9 mg/dL (1.8-2.4); POTASSIUM 3.8 mmol/L (3.5-5.1); TOT PROT 6.9 g/dl (6.4-8.2)
--- NOTE | 2020-01-14 13:56 | PN ---
Teaching Attending Note Name of Resident: Lili Vazquez ATTENDING PHYSICIAN STATEMENT I saw and evaluated the patient. I reviewed the resident's note and discussed the case with the resident. I agree with the resident's findings and plan as documented. SUBJECTIVE: Patient seen and examined in the ICU. Awake and alert. Denies CP or SOB. Feels overall better. Intake & Output 01/11/20 01/12/20 01/13/20 01/14/20 23:59 23:59 23:59 23:59 Intake Total 125 1145 220 Output Total 60 2750 300 Balance 65 -1605 -80 Weight 189 lb 13.088 oz 189 lb Last Vital Signs Temp Pulse Resp BP Pulse Ox 97.8 F 91 H 17 115/75 91 L 01/14/20 12:00 01/14/20 12:00 01/14/20 12:00 01/14/20 12:00 01/14/20 12:00 Active Medications Apixaban (Eliquis -) 5 mg PO BID [facility] Last Admin: 01/14/20 10:03 Dose: 5 mg Documented by: Diltiazem HCl (Cardizem Cd -) 180 mg PO DAILY [facility] Last Admin: 01/14/20 10:03 Dose: 180 mg Documented by: Rosuvastatin Calcium (Crestor -) 40 mg PO HS [facility] Last Admin: 01/13/20 21:19 Dose: 40 mg Documented by: GENERAL: Awake, alert, and fully oriented, in no acute distress HEAD: Normal with no signs of trauma. EYES: Pupils equal, round and reactive to light, extraocular movements intact, sclera anicteric, no lid lag EARS: R ear with skin irritation surrounding earring hole LUNGS: equal and CTAB. No wheezes, and no crackles. No accessory muscle use. HEART: irregular, S1 and S2 audible ABDOMEN: distended, mildly rigid and some added distension in upper midepigastric area, active BS, no guarding UPPER EXTREMITIES: warm to touch, no edema noted, some generalized weakness (appropriate given age) and drift bilaterally L>R LOWER EXTREMITIES: warm to touch, no edema, mild weakness in R leg and extensive weakness in L leg. normal sensation NEUROLOGICAL: Non-focal. PSYCHIATRIC: Cooperative. Good eye contact. Appropriate mood and affect given circumstances SKIN: Warm, no rashes or lesions noted, sensation intact and equal bilaterally Laboratory Results - last 24 hr 01/14/20 01/14/20 10:15 10:15 WBC 5.9 RBC 4.45 Hgb 13.3 Hct 41.0 MCV 92.1 MCH 30.0 MCHC 32.6 RDW 14.5 Plt Count 258 MPV 10.6 Absolute Neuts (auto) 4.0 Neutrophils % 67.4 Lymphocytes % 22.9 Monocytes % 9.3 Eosinophils % 0.0 Basophils % 0.4 Nucleated RBC % 0 Sodium 138 Potassium 3.8 Chloride 105 Carbon Dioxide 27 Anion Gap 7 L BUN 15.9 Creatinine 1.2 Est GFR (CKD-EPI)AfAm 51.20 Est GFR (CKD-EPI)NonAf 44.17 Random Glucose 119 H Calcium 8.8 Phosphorus 3.0 Magnesium 1.9 Total Bilirubin 0.5 AST 14 L ALT 16 Alkaline Phosphatase 97 Total Protein 6.9 Albumin 2.9 L ASSESSMENT/PLAN: 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
--- NOTE | 2020-01-14 15:02 | PN ---
Progress Note (short form) - Note Progress Note: TRANSFER NOTE Subjective: Patient seen and examined this morning, was eating her breakfast. Endorse some mild dizziness but was feeling well otherwise. Discussed that she can start ambulating as tolerated. NIHSS 2 this morning (drift of L leg and arm without touching bed). Objective: GENERAL: Awake, alert, and fully oriented, in no acute distress, appears stated age HEAD: Normal with no signs of trauma, symmetric smile, poor dentition. EARS: R ear with skin irritation surrounding earring hole LUNGS: equal and CTAB. No wheezes, and no crackles HEART: irregular, S1 and S2 audible ABDOMEN: distended, active BS UPPER EXTREMITIES: warm to touch, no edema noted, some generalized weakness (appropriate given age) and L drift bilaterally LOWER EXTREMITIES: warm to touch, no edema, mild weakness in L leg PSYCHIATRIC: Cooperative. Good eye contact. Appropriate mood and affect SKIN: Warm, no rashes or lesions noted, sensation intact and equal bilaterally Hospital Course: 74yo F with PMHx of HTN, asthma, and new diagnosis of atrial fibrillation presented L sided weakness. Head CT showed no signs of acute intracranial pathology and carotid doppler showed no high grade carotid artery stenosis. Patient received tPA and was admitted to ICU for post-tPA monitoring. Neurology has been following the patient. Started eliquis yesterday and patient has been optimized for transfer to the stroke floor. #Neuro: stroke s/p tPA - head CT without acute bleed - continue monitoring patient for changes in MS or possible bleeding - dysphagia, aspiration, and fall precautions - neurology following #Cardio: HTN afib HLD hypertriglyceridemia - started statin - starting eliquis - Echo showed normal EF with mild TR - Carotid doppler showed no obvious high grade stenosis - cardiology following #Pulm hx of asthma - resume home dose bronchodilators #Renal CKD - Cr 1.4 -- at baseline #ID no acute concerns - afebrile, CBC WNL, UA unremarkable - COVID pending #GI/ no acute concerns #Heme continue monitoring for bleed #FEN - d/c fluids - passed speech/swallow study - advanced to sodium restricted diet - replete lytes PRN Dispo: patient has been optimized for transfer to the stroke floor.
[2020-01-14] MEDS ORDERED: APIXABAN 5 MG TABLET PO SCH (15:48)
[2020-01-14] MEDS: ROSUVASTATIN CA 20 MG TABLET (FP) PO SCH (21:10)
[2020-01-15 07:24] LABS: BASO % 0.9 % (0-2.0); HEMATOCRIT 37.3 % (32.4-45.2); HEMOGLOBIN 12.2 GM/dL (10.7-15.3); LYMPH % 27.1 % (8-40); MCH 29.9 pg (25.7-33.7); MCHC 32.8 g/dl (32.0-36.0); MEAN CELL VOLUME 91.2 fl (80-96); MEAN PLT VOLUME 10.2 fl (7.5-11.1); MONO % 11.6 % (3.8-10.2); NEUT % 60.4 % (42.8-82.8); PLATELET COUNT 243 K/MM3 (134-434); RBC 4.09 M/mm3 (3.60-5.2); RDW 14.3 % (11.6-15.6); WHITE BLOOD COUNT 5.9 K/mm3 (4.0-10.0)
[2020-01-15 07:54] LABS: ALBUMIN 2.7 g/dl (3.4-5.0); BLOOD UREA NITROGEN 16.2 mg/dL (7-18); CALCIUM 8.6 mg/dL (8.5-10.1); CREATININE 1.2 mg/dL (0.55-1.3); PHOSPHOROUS 3.7 mg/dL (2.5-4.9); TOT PROT 6.5 g/dl (6.4-8.2)
[2020-01-15 08:00] LABS: BILIRUBIN,TOTAL 0.2 mg/dL (0.2-1)
--- NOTE | 2020-01-15 08:08 | PN ---
Progress Note, Physician Chief Complaint: CVA History of Present Illness: not opening eyes or speaking - Current Medication List Current Medications: Active Medications Apixaban (Eliquis -) 10 mg PO BID [facility] Stop: 01/21/20 23:59 Last Admin: 01/14/20 21:10 Dose: 10 mg Documented by: Apixaban (Eliquis -) 5 mg PO BID [facility] Diltiazem HCl (Cardizem Cd -) 180 mg PO DAILY [facility] Last Admin: 01/14/20 10:03 Dose: 180 mg Documented by: Rosuvastatin Calcium (Crestor -) 40 mg PO HS [facility] Last Admin: 01/14/20 21:10 Dose: 40 mg Documented by: - Objective Vital Signs: Vital Signs Temperature 98.3 F 01/15/20 08:00 Pulse Rate 65 01/15/20 08:00 Respiratory Rate 16 01/15/20 08:00 Blood Pressure 138/80 01/15/20 08:00 O2 Sat by Pulse Oximetry (%) 98 01/15/20 08:00 Constitutional: Yes: Well Nourished, No Distress, Calm Cardiovascular: Yes: Pulse Irregular. No: Murmur Respiratory: Yes: Regular, CTA Bilaterally (not deep breaths). No: Accessory Muscle Use Extremities: No: Cold Edema: No (SCDs) Neurological: No: Alert, Oriented, Seizure Psychiatric: No: Agitated Labs: CBC, BMP 01/15/20 05:50 01/15/20 05:50 INR, PTT INR 0.93 (0.83-1.09) 01/12/20 18:15 Assessment/Plan tele: AF rates controlled, to 40s-50s during overnight/early AM hours a/p: 74 f hx htn, here with cva, new afib. cva: -s/p tpa, sxs improving -found to be in afib as well, started NOAC after seen by Neurology -cont statin -echo normal, carotid US OK afib: -new onset, rvr initially, rate improved now (got iv dilt)--changed to CD 180 qd -AF down to 40s bpm overnight, likely vagal tone mediated. decr diltiazem to 120 qd -cont tele -cont Eliquis (note: 5mg BID dose for AF indication, no loading dose as in PE tx) htn: -BP controlled parker: -cont ivfs, monitor cr
[2020-01-15] MEDS: APIXABAN 5 MG TABLET PO SCH ×2 (09:26→21:21)
--- NOTE | 2020-01-15 11:27 | PN ---
Physical Exam: SUBJECTIVE: Patient seen and examined OBJECTIVE: Vital Signs Period Temp Pulse Resp BP Sys/Sanders Pulse Ox Last 24 Hr 97.6 F-98.3 F 63-91 11-22 115-151/72-93 91-99 GENERAL: The patient is awake, alert, and fully oriented, in no acute distress. HEAD: Normal with no signs of trauma. EYES: PERRL, extraocular movements intact, sclera anicteric, conjunctiva clear. No ptosis. ENT: Ears normal, nares patent, oropharynx clear without exudates, moist mucous membranes. NECK: Trachea midline, full range of motion, supple. LUNGS: Breath sounds equal, clear to auscultation bilaterally, no wheezes, no crackles, no accessory muscle use. HEART: Regular rate and rhythm, S1, S2 without murmur, rub or gallop. ABDOMEN: Soft, nontender, nondistended, normoactive bowel sounds, no guarding, no rebound, no hepatosplenomegaly, no masses. EXTREMITIES: 2+ pulses, warm, well-perfused, no edema. NEUROLOGICAL: Cranial nerves II through XII grossly intact. Normal speech, gait not observed. PSYCH: Normal mood, normal affect. SKIN: Warm, dry, normal turgor, no rashes or lesions noted Laboratory Results - last 24 hr 01/12/20 01/14/20 01/14/20 19:35 10:15 10:15 WBC 5.9 RBC 4.45 Hgb 13.3 Hct 41.0 MCV 92.1 MCH 30.0 MCHC 32.6 RDW 14.5 Plt Count 258 MPV 10.6 Absolute Neuts (auto) 4.0 Neutrophils % 67.4 Lymphocytes % 22.9 Monocytes % 9.3 Eosinophils % 0.0 Basophils % 0.4 Nucleated RBC % 0 Sodium 138 Potassium 3.8 Chloride 105 Carbon Dioxide 27 Anion Gap 7 L BUN 15.9 Creatinine 1.2 Est GFR (CKD-EPI)AfAm 51.20 Est GFR (CKD-EPI)NonAf 44.17 Random Glucose 119 H Calcium 8.8 Phosphorus 3.0 Magnesium 1.9 Total Bilirubin 0.5 AST 14 L ALT 16 Alkaline Phosphatase 97 Total Protein 6.9 Albumin 2.9 L COVID-19 (MIGUEL ANGEL) Not detected 01/15/20 01/15/20 05:50 05:50 WBC 5.9 RBC 4.09 Hgb 12.2 Hct 37.3 MCV 91.2 MCH 29.9 MCHC 32.8 RDW 14.3 Plt Count 243 MPV 10.2 Absolute Neuts (auto) 3.5 Neutrophils % 60.4 Lymphocytes % 27.1 Monocytes % 11.6 H Eosinophils % 0.0 Basophils % 0.9 Nucleated RBC % 0 Sodium 139 Potassium 4.0 Chloride 106 Carbon Dioxide 25 Anion Gap 9 BUN 16.2 Creatinine 1.2 Est GFR (CKD-EPI)AfAm 51.20 Est GFR (CKD-EPI)NonAf 44.17 Random Glucose 106 Calcium 8.6 Phosphorus 3.7 Magnesium 2.0 Total Bilirubin 0.2 AST 13 L ALT 15 Alkaline Phosphatase 89 Total Protein 6.5 Albumin 2.7 L COVID-19 ([facility]IGUEL ANGEL) Active Medications Generic Name Dose Route Start Last Admin Trade Name Freq PRN Reason Stop Dose Admin Apixaban 5 mg 01/15/20 10:00 01/15/20 09:26 Eliquis - PO 5 mg BID [facility] Administration Diltiazem HCl 180 mg 01/14/20 10:00 01/15/20 09:26 Cardizem Cd - PO 180 mg DAILY [facility] Administration Rosuvastatin Calcium 40 mg 01/12/20 22:00 01/14/20 21:10 Crestor - PO 40 mg HS [facility] Administration ASSESSMENT/PLAN: ATTENDING PHYSICIAN STATEMENT I saw and evaluated the patient. I reviewed the resident's note and discussed the case with the resident. I agree with the resident's findings and plan as documented. SUBJECTIVE: OBJECTIVE: ASSESSMENT AND PLAN:
--- NOTE | 2020-01-15 12:24 | PN ---
Progress Note (short form) - Note Progress Note: Brief ICU Rounding Note: - This pt no longer requires ICU level of care. A transfer order for the Stroke Unit has been written. Awaiting accepting attending from [facility]. - Please review Progress Note / ICU Transfer Summary by resident Dr. Vazquez dated 01/14/2020. Pt examined and briefly discussed on rounds. No acute events overnight. - BP at goal and A-fib rate controlled on PO medications. - Pt in discussion with [facility] regarding discharge to home or [facility] (application pending). Case discussed with ICU Attending Dr. Verma. Jose Laughlin M.D., PGY3 ICU Service Resident 15 January 2020
--- NOTE | 2020-01-15 13:21 | PN ---
Teaching Attending Note Name of Resident: Jose Laughlin ATTENDING PHYSICIAN STATEMENT I saw and evaluated the patient. I reviewed the resident's note and discussed the case with the resident. I agree with the resident's findings and plan as documented. SUBJECTIVE: Patient seen and examined in the ICU. Awake and alert. Denies CP or SOB. Feels overall better. No acute events overnight. Intake & Output 01/12/20 01/13/20 01/14/20 01/15/20 23:59 23:59 23:59 23:59 Intake Total 125 1145 570 450 Output Total 60 2750 600 300 Balance 65 -1605 -30 150 Weight 189 lb 13.088 oz 189 lb Last Vital Signs Temp Pulse Resp BP Pulse Ox 98.0 F 60 20 125/69 97 01/15/20 12:00 01/15/20 12:00 01/15/20 12:00 01/15/20 12:00 01/15/20 12:00 Active Medications Apixaban (Eliquis -) 5 mg PO BID [facility] Last Admin: 01/15/20 09:26 Dose: 5 mg Documented by: Diltiazem HCl (Cardizem Cd -) 180 mg PO DAILY [facility] Last Admin: 01/15/20 09:26 Dose: 180 mg Documented by: Rosuvastatin Calcium (Crestor -) 40 mg PO HS [facility] Last Admin: 01/14/20 21:10 Dose: 40 mg Documented by: GENERAL: Awake, alert, and fully oriented, in no acute distress HEAD: Normal with no signs of trauma. EYES: Pupils equal, round and reactive to light, extraocular movements intact, sclera anicteric, no lid lag EARS: R ear with skin irritation surrounding earring hole LUNGS: equal and CTAB. No wheezes, and no crackles. No accessory muscle use. HEART: irregular, S1 and S2 audible ABDOMEN: Sfot, (+) BS UPPER EXTREMITIES: warm to touch, no edema noted LOWER EXTREMITIES: warm to touch NEUROLOGICAL: Non-focal. PSYCHIATRIC: Cooperative. Good eye contact. SKIN: Warm, no rashes or lesions noted, sensation intact and equal bilaterally Laboratory Results - last 24 hr 01/12/20 01/15/20 01/15/20 19:35 05:50 05:50 WBC 5.9 RBC 4.09 Hgb 12.2 Hct 37.3 MCV 91.2 MCH 29.9 MCHC 32.8 RDW 14.3 Plt Count 243 MPV 10.2 Absolute Neuts (auto) 3.5 Neutrophils % 60.4 Lymphocytes % 27.1 Monocytes % 11.6 H Eosinophils % 0.0 Basophils % 0.9 Nucleated RBC % 0 Sodium 139 Potassium 4.0 Chloride 106 Carbon Dioxide 25 Anion Gap 9 BUN 16.2 Creatinine 1.2 Est GFR (CKD-EPI)AfAm 51.20 Est GFR (CKD-EPI)NonAf 44.17 Random Glucose 106 Calcium 8.6 Phosphorus 3.7 Magnesium 2.0 Total Bilirubin 0.2 AST 13 L ALT 15 Alkaline Phosphatase 89 Total Protein 6.5 Albumin 2.7 L COVID-19 ([facility] ANGEL) Not detected ASSESSMENT/PLAN: 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
[2020-01-15] MEDS: ROSUVASTATIN CA 20 MG TABLET (FP) PO SCH (21:21)
--- NOTE | 2020-01-16 07:49 | PN ---
Progress Note, Physician Chief Complaint: TIA Afib with RVR ABIEL History of Present Illness: [employer] Pt came in with Left sided weakness BIBEMS from home, given Tpa, also found to be in JEANETTE, evaluated by Neurology. Pt started on DOAC, tolerating well. PT eval- walked 10 ft. Feels LUE numbness. Referral was sent out for [facility] but now pt wants to go home with [facility] services. Pt lives at home with her grand daughter and grandson. Pt also c/o LLQ/ syprapubic pain that has been ongoing since admission? Pain 12/07, described at throbbing pain with no alleviating factors, progressively worsening. Has had daily BM's, + Flatus - Current Medication List Current Medications: Active Medications Apixaban (Eliquis -) 5 mg PO BID [facility] Last Admin: 01/15/20 21:21 Dose: 5 mg Documented by: Diltiazem HCl (Cardizem Cd -) 120 mg PO DAILY [facility] Rosuvastatin Calcium (Crestor -) 40 mg PO HS [facility] Last Admin: 01/15/20 21:21 Dose: 40 mg Documented by: - Objective Vital Signs: Vital Signs Temperature 98.1 F 01/16/20 06:00 Pulse Rate 75 01/16/20 06:00 Respiratory Rate 18 01/16/20 06:00 Blood Pressure 135/79 01/16/20 06:00 O2 Sat by Pulse Oximetry (%) 99 01/15/20 22:00 Constitutional: Yes: Well Nourished, No Distress, Calm, Obese Cardiovascular: Yes: Regular Rate and Rhythm Respiratory: Yes: Regular, CTA Bilaterally Gastrointestinal: Yes: Normal Bowel Sounds, Soft, Abdomen, Obese, Tenderness (LLQ+ Suprapubic tenderness) Genitourinary: Yes: WNL Musculoskeletal: Yes: Muscle Weakness Extremities: Yes: WNL Edema: No Peripheral Pulses WNL: Yes Neurological: Yes: Alert, Oriented ...Motor Strength: WNL (BLUE +5/+5 BLLE+5/+5) Psychiatric: Yes: Alert, Oriented Labs: CBC, BMP 01/15/20 05:50 01/15/20 05:50 INR, PTT INR 0.93 (0.83-1.09) 01/12/20 18:15 Problem List - Problems (1) TIA (transient ischemic attack) Assessment/Plan: -Received TPA -CT Head negative -U/S carotid negative -Seen by Neurology -Seen by Physical Therapy -Plan is to go home with [facility] services Problems reviewed: Yes Code(s): G45.9 - TRANSIENT CEREBRAL ISCHEMIC ATTACK, UNSPECIFIED (2) ABIEL (acute kidney injury) Assessment/Plan: -Resolved Problems reviewed: Yes Code(s): N17.9 - ACUTE KIDNEY FAILURE, UNSPECIFIED (3) New onset a-fib Assessment/Plan: -Started on DOAC- Eliquis 5 mg po bid -Echo:01/13/20: Normal LVEF at 55-60%, Trace tricuspid regurgitation -Seen by Cardiology -Started on CCB-Continue diltiazem PO -Telemetry- no events overnight Problems reviewed: Yes Code(s): I48.91 - UNSPECIFIED ATRIAL FIBRILLATION (4) Hyperlipidemia Assessment/Plan: -LDL at 116 with goal of <70 given new onset of TIA Problems reviewed: Yes Code(s): E78.5 - HYPERLIPIDEMIA, UNSPECIFIED (5) Pelvic pain in female Assessment/Plan: -Pelvic bladder U/S Problems reviewed: Yes Code(s): R10.2 - PELVIC AND PERINEAL PAIN Assessment/Plan See problem list Pt can be discharged home with [facility] services in AM. Referral to [facility] was sent in yesterday. Confirm acceptance before discharge. Left message for son Ronald to update pt's status.
[2020-01-16] MEDS: APIXABAN 5 MG TABLET PO SCH ×2 (10:47→21:55)
--- NOTE | 2020-01-16 12:46 | PN ---
Progress Note, Physician Chief Complaint: CVA History of Present Illness: opens eyes to speak. denies cp, sob, palp, dizzy - Current Medication List Current Medications: Active Medications Apixaban (Eliquis -) 5 mg PO BID [facility] Last Admin: 01/16/20 10:47 Dose: 5 mg Documented by: Diltiazem HCl (Cardizem Cd -) 120 mg PO DAILY [facility] Last Admin: 01/16/20 10:46 Dose: 120 mg Documented by: Rosuvastatin Calcium (Crestor -) 40 mg PO HS [facility] Last Admin: 01/15/20 21:21 Dose: 40 mg Documented by: - Objective Vital Signs: Vital Signs Temperature 98 F 01/16/20 08:00 Pulse Rate 79 01/16/20 08:00 Respiratory Rate 18 01/16/20 08:00 Blood Pressure 142/88 01/16/20 08:00 O2 Sat by Pulse Oximetry (%) 98 01/16/20 09:00 Constitutional: Yes: Well Nourished, No Distress, Calm Cardiovascular: Yes: Pulse Irregular, S1, S2. No: Murmur Respiratory: Yes: Regular, CTA Bilaterally. No: Accessory Muscle Use Extremities: No: Cool Edema: No Neurological: Yes: Lethargy. No: Seizure Psychiatric: No: Agitated Labs: CBC, BMP 01/15/20 05:50 01/15/20 05:50 INR, PTT INR 0.93 (0.83-1.09) 01/12/20 18:15 Assessment/Plan tele: AF rates controlled, no bradycardia a/p: 74 f hx htn, here with cva, new afib. cva: -s/p tpa, sxs improving -found to be in afib as well, started NOAC after seen by Neurology -cont statin -echo normal, carotid US OK afib: -new onset, rvr initially, rate improved now (got iv dilt)--changed to CD 180 qd -AF down to 40s bpm overnight, likely vagal tone mediated--diltiazem decr'd to 120 qd--well controlled now -cont Eliquis (note: 5mg BID dose for AF indication, no loading dose as in PE tx) htn: -BP controlled parker: -cont ivfs, monitor cr D/C TELEMETRY
--- NOTE | 2020-01-16 14:08 | PN ---
Progress Note (short form) - Note Progress Note: Feels overall better. No CP or SOB. No acute events overnight. Intake & Output 01/13/20 01/14/20 01/15/20 01/16/20 23:59 23:59 23:59 23:59 Intake Total 1145 570 600 710 Output Total 2750 600 550 300 Balance -1605 -30 50 410 Weight 189 lb Last Vital Signs Temp Pulse Resp BP Pulse Ox 98 F 79 18 142/88 98 01/16/20 08:00 01/16/20 08:00 01/16/20 08:00 01/16/20 08:00 01/16/20 09:00 Active Medications Apixaban (Eliquis -) 5 mg PO BID [facility] Last Admin: 01/16/20 10:47 Dose: 5 mg Documented by: Diltiazem HCl (Cardizem Cd -) 120 mg PO DAILY [facility] Last Admin: 01/16/20 10:46 Dose: 120 mg Documented by: Rosuvastatin Calcium (Crestor -) 40 mg PO HS [facility] Last Admin: 01/15/20 21:21 Dose: 40 mg Documented by: GENERAL: Awake, alert, and fully oriented, in no acute distress HEAD: Normal with no signs of trauma. EYES: Pupils equal, round and reactive to light, extraocular movements intact, sclera anicteric, no lid lag EARS: R ear with skin irritation surrounding earring hole LUNGS: equal and CTAB. No wheezes, and no crackles. No accessory muscle use. HEART: irregular, S1 and S2 audible ABDOMEN: Sfot, (+) BS UPPER EXTREMITIES: warm to touch, no edema noted LOWER EXTREMITIES: warm to touch NEUROLOGICAL: Non-focal. PSYCHIATRIC: Cooperative. Good eye contact. 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
[2020-01-16] MEDS: ACETAMINOPHEN 500 MG TABLET (FP) PO PRN (21:55)
[2020-01-16] MEDS: ROSUVASTATIN CA 20 MG TABLET (FP) PO SCH (21:55)
[2020-01-17] MEDS: APIXABAN 5 MG TABLET PO SCH ×2 (09:08→22:03)
[2020-01-17] MEDS: ACETAMINOPHEN 500 MG TABLET (FP) PO PRN ×2 (09:40→22:05)
--- NOTE | 2020-01-17 11:20 | PN ---
Progress Note (short form) - Note Progress Note: Chief Complaint: CVA History of Present Illness: denies cp, sob, palp, dizzy - Current Medications Generic Name Dose Route Start Last Admin Trade Name Bettina PRN Reason Stop Dose Admin Acetaminophen 1,000 mg 01/16/20 15:53 01/17/20 09:40 Tylenol - PO 1,000 mg Q6H PRN Administration PAIN Apixaban 5 mg 01/15/20 10:00 01/17/20 09:08 Eliquis - PO 5 mg BID ANNAMARIA Administration Diltiazem HCl 120 mg 01/15/20 14:43 01/17/20 09:08 Cardizem Cd - PO 120 mg DAILY ANNAMARIA Administration Rosuvastatin Calcium 40 mg 01/15/20 22:00 01/16/20 21:55 Crestor - PO 40 mg HS ANNAMARIA Administration Vital Signs Period Temp Pulse Resp BP Sys/Sanders Pulse Ox Last 24 Hr 98 F-98.1 F 63-83 16-19 123-154/71-90 97-99 Constitutional: Yes: Well Nourished, No Distress, Calm Cardiovascular: Yes: Pulse Irregular, S1, S2. No: Murmur Respiratory: Yes: Regular, CTA Bilaterally. No: Accessory Muscle Use Extremities: No: Cool Edema: No Neurological: Yes: Lethargy. No: Seizure Psychiatric: No: Agitated no jaundice diaphoresis Laboratory Last Values WBC 5.9 K/mm3 (4.0-10.0) 01/15/20 05:50 RBC 4.09 M/mm3 (3.60-5.2) 01/15/20 05:50 Hgb 12.2 GM/dL (10.7-15.3) 01/15/20 05:50 Hct 37.3 % (32.4-45.2) 01/15/20 05:50 MCV 91.2 fl (80-96) 01/15/20 05:50 MCH 29.9 pg (25.7-33.7) 01/15/20 05:50 MCHC 32.8 g/dl (32.0-36.0) 01/15/20 05:50 RDW 14.3 % (11.6-15.6) 01/15/20 05:50 Plt Count 243 K/MM3 (134-434) 01/15/20 05:50 MPV 10.2 fl (7.5-11.1) 01/15/20 05:50 Absolute Neuts (auto) 3.5 K/mm3 (1.5-8.0) 01/15/20 05:50 Neutrophils % 60.4 % (42.8-82.8) 01/15/20 05:50 Lymphocytes % 27.1 % (8-40) 01/15/20 05:50 Monocytes % 11.6 % (3.8-10.2) H 01/15/20 05:50 Eosinophils % 0.0 % (0-4.5) 01/15/20 05:50 Basophils % 0.9 % (0-2.0) 01/15/20 05:50 Nucleated RBC % 0 % (0-0) 01/15/20 05:50 PT with INR 11.00 SEC (9.7-13.0) 01/12/20 18:15 INR 0.93 (0.83-1.09) 01/12/20 18:15 PTT (Actin FS) 26.9 SECONDS (25.2-36.5) 01/12/20 18:15 Sodium 139 mmol/L (136-145) 01/15/20 05:50 Potassium 4.0 mmol/L (3.5-5.1) 01/15/20 05:50 Chloride 106 mmol/L (98-107) 01/15/20 05:50 Carbon Dioxide 25 mmol/L (21-32) 01/15/20 05:50 Anion Gap 9 MMOL/L (8-16) 01/15/20 05:50 BUN 16.2 mg/dL (7-18) 01/15/20 05:50 Creatinine 1.2 mg/dL (0.55-1.3) 01/15/20 05:50 Est GFR (CKD-EPI)AfAm 51.20 01/15/20 05:50 Est GFR (CKD-EPI)NonAf 44.17 01/15/20 05:50 Random Glucose 106 mg/dL (74-106) 01/15/20 05:50 Calcium 8.6 mg/dL (8.5-10.1) 01/15/20 05:50 Phosphorus 3.7 mg/dL (2.5-4.9) 01/15/20 05:50 Magnesium 2.0 mg/dL (1.8-2.4) 01/15/20 05:50 Total Bilirubin 0.2 mg/dL (0.2-1) 01/15/20 05:50 AST 13 U/L (15-37) L 01/15/20 05:50 ALT 15 U/L (13-61) 01/15/20 05:50 Alkaline Phosphatase 89 U/L (45-117) 01/15/20 05:50 Creatine Kinase 80 U/L (26-192) 01/12/20 18:15 Troponin I < 0.02 ng/ml (0.00-0.05) 01/12/20 18:15 Total Protein 6.5 g/dl (6.4-8.2) 01/15/20 05:50 Albumin 2.7 g/dl (3.4-5.0) L 01/15/20 05:50 Triglycerides 173 mg/dL (0-150) H 01/12/20 18:15 Triglycerides Cancelled 01/12/20 18:15 Cholesterol 227 mg/dL (50-200) H 01/12/20 18:15 Cholesterol Cancelled 01/12/20 18:15 Total LDL Cholesterol 116 mg/dL (5-100) H 01/12/20 18:15 Total LDL Cholesterol Cancelled 01/12/20 18:15 HDL Cholesterol 87 mg/dL (40-60) H 01/12/20 18:15 HDL Cholesterol Cancelled 01/12/20 18:15 TSH 3.44 uIU/ml (0.358-3.74) 01/12/20 18:15 Urine Color Yellow 01/12/20 18:34 Urine Appearance Clear 01/12/20 18:34 Urine pH 5.0 (5.0-8.0) 01/12/20 18:34 Ur Specific [place] 1.020 (1.010-1.035) 01/12/20 18:34 Urine Protein 2+ (NEGATIVE) H 01/12/20 18:34 Urine Glucose (UA) Negative (NEGATIVE) 01/12/20 18:34 Urine Ketones Trace (NEGATIVE) H 01/12/20 18:34 Urine Blood Negative (NEGATIVE) 01/12/20 18:34 Urine Nitrite Negative (NEGATIVE) 01/12/20 18:34 Urine Bilirubin Negative (NEGATIVE) 01/12/20 18:34 Urine Urobilinogen 1.0 mg/dL (0.2-1.0) 01/12/20 18:34 Ur Leukocyte Esterase 1+ (NEGATIVE) H 01/12/20 18:34 Urine WBC (Auto) 5 /uL (0-25.8) 01/12/20 18:34 Urine RBC (Auto) 9 /uL (0-23.9) 01/12/20 18:34 Urine Casts (Auto) 4 /uL (0-3.1) 01/12/20 18:34 U Pathogenic Cast Auto 1-3 /lpf (NEGATIVE) 01/12/20 18:34 U Epithel Cells (Auto) 33 /uL (0-25.1) 01/12/20 18:34 Urine Bacteria (Auto) 16 /uL (0-1359) 01/12/20 18:34 COVID-19 (MIGUEL ANGEL) Not detected (Not Detected) 01/12/20 19:35 Blood Type O POSITIVE 01/12/20 18:15 Antibody Screen Negative 01/12/20 18:15 tele: AF rates controlled a/p: 74 f hx htn, here with cva, new afib. cva: -s/p tpa, sxs improving -found to be in afib as well, started NOAC after seen by Neurology -cont statin -echo normal, carotid US OK afib: -new onset, rvr initially, rate improved now (got iv dilt)--changed to CD 180 qd -AF down to 40s bpm overnight, likely vagal tone mediated--diltiazem decr'd to 120 qd--well controlled now -cont Eliquis (note: 5mg BID dose for AF indication, no loading dose as in PE tx) htn: -BP controlled parker: -improved, monitor cr
--- NOTE | 2020-01-17 13:54 | PN ---
Progress Note (short form) - Note Progress Note: Feels overall better. No CP or SOB. No acute events overnight. Intake & Output 01/14/20 01/15/20 01/16/20 01/17/20 23:59 23:59 23:59 23:59 Intake Total 558 521 2282 500 Output Total 600 550 500 150 Balance -30 50 500 350 Weight 189 lb Last Vital Signs Temp Pulse Resp BP Pulse Ox 98.1 F 83 18 154/90 99 01/17/20 10:00 01/17/20 10:00 01/17/20 10:00 01/17/20 10:00 01/17/20 10:00 Active Medications Acetaminophen (Tylenol -) 1,000 mg PO Q6H PRN PRN Reason: PAIN Last Admin: 01/17/20 09:40 Dose: 1,000 mg Documented by: Apixaban (Eliquis -) 5 mg PO BID [facility] Last Admin: 01/17/20 09:08 Dose: 5 mg Documented by: Diltiazem HCl (Cardizem Cd -) 120 mg PO DAILY [facility] Last Admin: 01/17/20 09:08 Dose: 120 mg Documented by: Rosuvastatin Calcium (Crestor -) 40 mg PO HS [facility] Last Admin: 01/16/20 21:55 Dose: 40 mg Documented by: GENERAL: Awake, alert, and fully oriented, in no acute distress HEAD: Normal with no signs of trauma. EYES: Pupils equal, round and reactive to light, extraocular movements intact, sclera anicteric, no lid lag EARS: R ear with skin irritation surrounding earring hole LUNGS: equal and CTAB. No wheezes, and no crackles. No accessory muscle use. HEART: irregular, S1 and S2 audible ABDOMEN: Sfot, (+) BS UPPER EXTREMITIES: warm to touch, no edema noted LOWER EXTREMITIES: warm to touch NEUROLOGICAL: Non-focal. PSYCHIATRIC: Cooperative. Good eye contact. 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
[2020-01-17] MEDS: ROSUVASTATIN CA 20 MG TABLET (FP) PO SCH (22:03)
[2020-01-18] MEDS: APIXABAN 5 MG TABLET PO SCH ×2 (09:07→22:25)
--- NOTE | 2020-01-18 09:51 | PN ---
Progress Note, Physician History of Present Illness: pulmonary alert,comfortable,-sob,-cp - Current Medication List Current Medications: Active Medications Acetaminophen (Tylenol -) 1,000 mg PO Q6H PRN PRN Reason: PAIN Last Admin: 01/17/20 22:05 Dose: 1,000 mg Documented by: Apixaban (Eliquis -) 5 mg PO BID [facility] Last Admin: 01/18/20 09:07 Dose: 5 mg Documented by: Diltiazem HCl (Cardizem Cd -) 120 mg PO DAILY [facility] Last Admin: 01/18/20 09:07 Dose: 120 mg Documented by: Rosuvastatin Calcium (Crestor -) 40 mg PO HS [facility] Last Admin: 01/17/20 22:03 Dose: 40 mg Documented by: - Objective Vital Signs: Vital Signs Temperature 98.1 F 01/18/20 06:00 Pulse Rate 68 01/18/20 06:00 Respiratory Rate 18 01/18/20 06:00 Blood Pressure 141/81 01/18/20 06:00 O2 Sat by Pulse Oximetry (%) 100 01/18/20 06:00 Constitutional: Yes: Well Nourished, Calm Eyes: Yes: WNL HENT: Yes: WNL Neck: Yes: WNL Cardiovascular: Yes: Regular Rate and Rhythm, S1, S2 Respiratory: Yes: CTA Bilaterally Gastrointestinal: Yes: Normal Bowel Sounds, Soft Extremities: Yes: WNL Edema: No Labs: CBC, BMP 01/15/20 05:50 01/15/20 05:50 INR, PTT INR 0.93 (0.83-1.09) 01/12/20 18:15 Problem List - Problems (1) Cerebrovascular accident (CVA) Code(s): I63.9 - CEREBRAL INFARCTION, UNSPECIFIED Qualifiers: CVA mechanism: unspecified Qualified Code(s): I63.9 - Cerebral infarction, unspecified (2) Hyperlipidemia Code(s): E78.5 - HYPERLIPIDEMIA, UNSPECIFIED (3) New onset a-fib Code(s): I48.91 - UNSPECIFIED ATRIAL FIBRILLATION (4) Asthma Code(s): J45.909 - UNSPECIFIED ASTHMA, UNCOMPLICATED Assessment/Plan ASSESSMENT/PLAN: 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
--- NOTE | 2020-01-18 12:55 | PN ---
Progress Note (short form) - Note Progress Note: Chief Complaint: CVA History of Present Illness: denies cp, sob, palp, dizzy Current Medications Generic Name Dose Route Start Last Admin Trade Name Bettina PRN Reason Stop Dose Admin Acetaminophen 1,000 mg 01/16/20 15:53 01/17/20 22:05 Tylenol - PO 1,000 mg Q6H PRN Administration PAIN Apixaban 5 mg 01/15/20 10:00 01/18/20 09:07 Eliquis - PO 5 mg BID ANNAMARIA Administration Diltiazem HCl 120 mg 01/15/20 14:43 01/18/20 09:07 Cardizem Cd - PO 120 mg DAILY ANNAMARIA Administration Rosuvastatin Calcium 40 mg 01/15/20 22:00 01/17/20 22:03 Crestor - PO 40 mg HS ANNAMARIA Administration Vital Signs Period Temp Pulse Resp BP Sys/Sanders Pulse Ox Last 24 Hr 97.6 F-98.4 F 56-82 18-18 141-158/71-81 96-100 Constitutional: Yes: Well Nourished, No Distress, Calm Cardiovascular: Yes: Pulse Irregular, S1, S2. No: Murmur Respiratory: Yes: Regular, CTA Bilaterally. No: Accessory Muscle Use Extremities: No: Cool Edema: No Neurological: Yes: Lethargy. No: Seizure Psychiatric: No: Agitated no jaundice diaphoresis a/p: 74 f hx htn, here with cva, new afib. cva: -s/p tpa, sxs improving -found to be in afib as well, started NOAC after seen by Neurology -cont statin -echo normal, carotid US OK afib: -new onset, rvr initially, rate improved now (got iv dilt)--changed to CD 180 qd -AF down to 40s bpm overnight, likely vagal tone mediated--diltiazem decr'd to 120 qd--well controlled now -cont Eliquis (note: 5mg BID dose for AF indication, no loading dose as in PE tx) htn: -BP controlled parker: -improved, monitor cr
[2020-01-18] MEDS: ACETAMINOPHEN 500 MG TABLET (FP) PO PRN ×2 (13:34→19:35)
--- NOTE | 2020-01-18 15:53 | PN ---
Teaching Attending Note Name of Resident: Dixie Guillermo ATTENDING PHYSICIAN STATEMENT I saw and evaluated the patient. I reviewed the resident's note and discussed the case with the resident. I agree with the resident's findings and plan as documented. SUBJECTIVE: 74 year old AAF with hypertension, new onset atrial fibrillation who was adm itted for CVA. She received TPA. He is now on statin and DOAC. With regards to Atrial fibrillation, he was on IV diltiazem and subsequently converted to oral form. Heart rate is now well controlled. She will be discharged on Eliquis twice daily. Echo and carotid US are both normal. Hypertension is controlled. Objective: Gen appears obese, appropriate for stated age and not in any distress HEENT: whitish film over the pupils bilaterally. 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 DC with VNS services 2. DC with DOAC 3. patient is able to ambulate with an assistive device 4. FU with PCP in 3-[address] Guillermo and Dr Tam.
--- NOTE | 2020-01-18 17:13 | DS ---
Physical Exam: SUBJECTIVE: Patient seen and examined OBJECTIVE: Vital Signs Period Temp Pulse Resp BP Sys/Sanders Pulse Ox Last 24 Hr 97.6 F-98.4 F 56-82 15-18 141-158/71-87 97-100 PHYSICAL EXAM GENERAL: The patient is awake, alert, and fully oriented, in no acute distress. EYES: PERRL, extraocular movements intact, sclera anicteric, conjunctiva clear. ENT: moist mucous membranes. NECK: Trachea midline, full range of motion, supple. LUNGS: Breath sounds equal, clear to auscultation bilaterally, no wheezes, no crackles, no accessory muscle use. HEART: Regular rate and rhythm, S1, S2 without murmur, rub or gallop. ABDOMEN: Soft, nontender, nondistended, normoactive bowel sounds, no guarding, no rebound EXTREMITIES: 2+ pulses, warm, well-perfused, no edema. NEUROLOGICAL: Cranial nerves II through XII grossly intact. Normal speech, gait not observed. Mild right sided facial droop and flattened nasolabial fold. PSYCH: Normal mood, normal affect. SKIN: Warm, dry, normal turgor, no rashes or lesions noted. LABS CBC,CMP WBC 5.9 K/mm3 (4.0-10.0) 01/15/20 05:50 RBC 4.09 M/mm3 (3.60-5.2) 01/15/20 05:50 Hgb 12.2 GM/dL (10.7-15.3) 01/15/20 05:50 Hct 37.3 % (32.4-45.2) 01/15/20 05:50 MCV 91.2 fl (80-96) 01/15/20 05:50 MCH 29.9 pg (25.7-33.7) 01/15/20 05:50 MCHC 32.8 g/dl (32.0-36.0) 01/15/20 05:50 RDW 14.3 % (11.6-15.6) 01/15/20 05:50 Plt Count 243 K/MM3 (134-434) 01/15/20 05:50 MPV 10.2 fl (7.5-11.1) 01/15/20 05:50 Absolute Neuts (auto) 3.5 K/mm3 (1.5-8.0) 01/15/20 05:50 Neutrophils % 60.4 % (42.8-82.8) 01/15/20 05:50 Lymphocytes % 27.1 % (8-40) 01/15/20 05:50 Monocytes % 11.6 % (3.8-10.2) H 01/15/20 05:50 Eosinophils % 0.0 % (0-4.5) 01/15/20 05:50 Basophils % 0.9 % (0-2.0) 01/15/20 05:50 Nucleated RBC % 0 % (0-0) 01/15/20 05:50 Sodium 139 mmol/L (136-145) 01/15/20 05:50 Potassium 4.0 mmol/L (3.5-5.1) 01/15/20 05:50 Chloride 106 mmol/L (98-107) 01/15/20 05:50 Carbon Dioxide 25 mmol/L (21-32) 01/15/20 05:50 Anion Gap 9 MMOL/L (8-16) 01/15/20 05:50 BUN 16.2 mg/dL (7-18) 01/15/20 05:50 Creatinine 1.2 mg/dL (0.55-1.3) 01/15/20 05:50 Est GFR (CKD-EPI)AfAm 51.20 01/15/20 05:50 Est GFR (CKD-EPI)NonAf 44.17 01/15/20 05:50 Random Glucose 106 mg/dL (74-106) 01/15/20 05:50 Calcium 8.6 mg/dL (8.5-10.1) 01/15/20 05:50 Phosphorus 3.7 mg/dL (2.5-4.9) 01/15/20 05:50 Magnesium 2.0 mg/dL (1.8-2.4) 01/15/20 05:50 Total Bilirubin 0.2 mg/dL (0.2-1) 01/15/20 05:50 AST 13 U/L (15-37) L 01/15/20 05:50 ALT 15 U/L (13-61) 01/15/20 05:50 Alkaline Phosphatase 89 U/L (45-117) 01/15/20 05:50 Creatine Kinase 80 U/L (26-192) 01/12/20 18:15 Troponin I < 0.02 ng/ml (0.00-0.05) 01/12/20 18:15 Total Protein 6.5 g/dl (6.4-8.2) 01/15/20 05:50 Albumin 2.7 g/dl (3.4-5.0) L 01/15/20 05:50 Triglycerides 173 mg/dL (0-150) H 01/12/20 18:15 Triglycerides Cancelled 01/12/20 18:15 Cholesterol 227 mg/dL (50-200) H 01/12/20 18:15 Cholesterol Cancelled 01/12/20 18:15 Total LDL Cholesterol 116 mg/dL (5-100) H 01/12/20 18:15 Total LDL Cholesterol Cancelled 01/12/20 18:15 HDL Cholesterol 87 mg/dL (40-60) H 01/12/20 18:15 HDL Cholesterol Cancelled 01/12/20 18:15 TSH 3.44 uIU/ml (0.358-3.74) 01/12/20 18:15 Current Medications Generic Name Dose Route Start Last Admin Trade Name Freq PRN Reason Stop Dose Admin Acetaminophen 1,000 mg 01/16/20 15:53 01/18/20 13:34 Tylenol - PO 1,000 mg Q6H PRN Administration PAIN Apixaban 5 mg 01/15/20 10:00 01/18/20 09:07 Eliquis - PO 5 mg BID ANNAMARIA Administration Diltiazem HCl 120 mg 01/15/20 14:43 01/18/20 09:07 Cardizem Cd - PO 120 mg DAILY ANNAMARIA Administration Rosuvastatin Calcium 40 mg 01/15/20 22:00 01/17/20 22:03 Crestor - PO 40 mg HS ANNAMARIA Administration Discontinued Medications Generic Name Dose Route Start Last Admin Trade Name Freq PRN Reason Stop Dose Admin Alteplase, Recombinant 68 mg 01/12/20 18:23 01/12/20 18:54 Activase 100mg - IVPB 01/12/20 18:24 68 mg ONCE ONE Administration Protocol Alteplase, Recombinant 7.56 mg 01/12/20 18:23 01/12/20 18:53 Activase Bolus IVPUSH 01/12/20 18:24 7.56 mg ONCE ONE Administration Protocol Apixaban 5 mg 01/13/20 22:00 01/14/20 10:03 Eliquis - PO 5 mg BID ANNAMARIA Administration Apixaban 10 mg 01/14/20 15:48 01/14/20 21:10 Eliquis - PO 01/21/20 23:59 10 mg BID ANNAMARIA Administration Apixaban 5 mg 01/22/20 00:01 Eliquis - PO BID ANNAMARIA Diltiazem HCl 10 mg 01/12/20 18:57 01/12/20 19:14 Cardizem Injection - IVPUSH 01/12/20 18:58 10 mg ONCE ONE Administration Diltiazem HCl 180 mg 01/14/20 10:00 01/15/20 09:26 Cardizem Cd - PO 180 mg DAILY ANNAMARIA Administration Sodium Chloride 1,000 mls @ 42 mls/hr 01/12/20 18:15 01/12/20 22:04 Normal Saline - IV 42 mls/hr ASDIR ANNAMARIA Administration Sodium Chloride 1,000 mls @ 50 mls/hr 01/12/20 18:30 01/12/20 18:59 Normal Saline - IV 01/13/20 18:24 50 mls/hr ASDIR ANNAMARIA Administration Nicardipine HCl 25 mg/ 250 mls @ 25 mls/hr 01/12/20 23:00 01/12/20 23:20 Dextrose IVPB 2.5 mg/hr TITR ANNAMARIA 25 mls/hr Administration Protocol 2.5 MG/HR Nifedipine 90 mg 01/13/20 10:00 01/13/20 09:18 Procardia Xl - PO 90 mg DAILY ANNAMARIA Administration Rosuvastatin Calcium 40 mg 01/12/20 22:00 01/14/20 21:10 Crestor - PO 40 mg HS ANNAMARIA Administration Home Medications Medication Instructions Recorded Albuterol Sulfate Inhaler - 1 - 2 inh IH QID 09/22/12 [Ventolin HFA Inhaler -] Cetirizine HCl [Zyrtec Chewable -] 10 mg PO DAILY 09/22/12 NIFEdipine XL [Adalat Cc] 90 mg PO DAILY 09/22/12 Apixaban [Eliquis] 5 mg PO BID #60 tablet 01/18/20 Diltiazem HCl [Cartia Xt] 120 mg PO DAILY #30 cap.er.24h 01/18/20 Fluticasone Propion/Salmeterol 1 each IH DAILY 01/18/20 [Fluticasone-Salmeterol 500-50] Rosuvastatin [Crestor -] 40 mg PO DAILY #30 tablet 01/18/20 HOSPITAL COURSE: Date of Admission:01/12/20 74yo F with PMHx of HTN, asthma, seasonal allergies, and new diagnosis of atrial fibrillation that noticed some L arm weakness at home that progressed to L leg weakness, visual deficits, and difficulties with articulation. Found to have Right sided CVA with left sided neuro deficit. Started Tpa by ICU, also found to be in new onset A-fib, evaluated by Neurology and cardiology. Pt started on DOAC/Eliquis, tolerating well. PT eval- walked 10 ft. Feels LUE numbness. Referral was sent out for [facility] but now pt wants to go home with VNS services. Pt is set up with VNS services, referral to neuro and cardio, pcp outpatient. Pt is also sent home on eliquis, rosuvastatin and eliquis. Cardiology discontinued Nifedipine. Date of Discharge: 01/18/20 Minutes to complete discharge: 40 Discharge Summary Problems reviewed: Yes Reason For Visit: CVA Current Active Problems Hyperlipidemia (Chronic) New onset a-fib (Chronic) Condition: Good - Instructions Diet, Activity, Other Instructions: You were admitted to the hospital for weakness of your left side. While in the hospital, we evaluated you with lab work, blood work, imaging including CAT scan of you head and x rays of your chest. We found your symptoms were caused by a stroke in your brain, which required medications and monitoring in the ICU. We had neurologist and button sewer hand evaluate you during your stay. We treated you with medications and your symptoms resolved You will be set up with visiting nursing services to assist you at home To prevent future strokes and continue the treatment of your stroke, please take the following medications as prescribed: Please START taking Eliquis 5 mg twice a day Please START taking Diltiazem 120 mg once a day in the mornings Please START taking Rosuvastatin 5 mg daily at bedtime Please take all your medications as prescribed Follow up with your PCP within 3 weeks. Follow up with Cardiology Dr Leonidas Zepeda MD within next 4 weeks Follow up with the neurologist, Dr. Pickett with 1 week for further management of your stroke Return to the emergency room if you experience worsening of your symptoms, chest pain, abdominal pain or any worsening of your condition. Referrals: Anderson Pickett MD [Staff Physician] - 1 Week Leonidas Zepeda MD [Staff Physician] - Lorenzo Haley [Primary Care Provider] - Disposition: VNS/HOME HEALTH CARE - Home Medications Comprehensive Discharge Medication List: Ambulatory Orders Albuterol Sulfate Inhaler - [Ventolin HFA Inhaler -] 1 - 2 inh IH QID 09/22/12 Cetirizine HCl [Zyrtec Chewable -] 10 mg PO DAILY 09/22/12 NIFEdipine XL [Adalat Cc] 90 mg PO DAILY 09/22/12 Apixaban [Eliquis] 5 mg PO BID #60 tablet 01/18/20 Diltiazem HCl [Cartia Xt] 120 mg PO DAILY #30 cap.er.24h 01/18/20 Fluticasone Propion/Salmeterol [Fluticasone-Salmeterol 500-50] 1 each IH DAILY 01/18/20 Rosuvastatin [Crestor -] 40 mg PO DAILY #30 tablet 01/18/20 This patient is new to me today: Yes Date on this admission: 01/18/20 Emergency Visit: Yes ED Registration Date: 01/12/20 Care time: The patient presented to the Emergency Department on the above date and was hospitalized for further evaluation of their emergent condition. Critical Care patient: No - Discharge Referral Referred to [facility] Med [facility] No ATTENDING PHYSICIAN STATEMENT I saw and evaluated the patient. I reviewed the resident's note and discussed the case with the resident. I agree with the resident's findings and plan as documented. SUBJECTIVE: OBJECTIVE: ASSESSMENT AND PLAN:
[2020-01-18] MEDS: ROSUVASTATIN CA 20 MG TABLET (FP) PO SCH (22:25)
[2020-01-19] MEDS: APIXABAN 5 MG TABLET PO SCH (10:21)
[2020-01-19] MEDS ORDERED: PT OWN MED DRAWER 7, Y5N ONE (12:12)
--- NOTE | 2020-01-19 12:20 | PN ---
Progress Note (short form) - Note Progress Note: Chief Complaint: CVA History of Present Illness: no cp, sob, palp, dizzy Current Medications Generic Name Dose Route Start Last Admin Trade Name eBttina PRN Reason Stop Dose Admin Acetaminophen 1,000 mg 01/16/20 15:53 01/18/20 19:35 Tylenol - PO 1,000 mg Q6H PRN Administration PAIN Apixaban 5 mg 01/15/20 10:00 01/19/20 10:21 Eliquis - PO 5 mg BID ANNAMARIA Administration Diltiazem HCl 120 mg 01/15/20 14:43 01/19/20 10:21 Cardizem Cd - PO 120 mg DAILY ANNAMARIA Administration Rosuvastatin Calcium 40 mg 01/15/20 22:00 01/18/20 22:25 Crestor - PO 40 mg HS ANNAMARIA Administration Vital Signs Period Temp Pulse Resp BP Sys/Sanders Pulse Ox Last 24 Hr 98.1 F-98.6 F 60-83 15-20 139-163/70-87 97-100 Constitutional: Yes: Well Nourished, No Distress, Calm Cardiovascular: Yes: Pulse Irregular, S1, S2. No: Murmur Respiratory: Yes: Regular, CTA Bilaterally. No: Accessory Muscle Use Extremities: No: Cool Edema: No Neurological: Yes: Lethargy. No: Seizure Psychiatric: No: Agitated no jaundice diaphoresis a/p: 74 f hx htn, here with cva, new afib. cva: -s/p tpa, sxs improving -found to be in afib as well, started NOAC after seen by Neurology -cont statin -echo normal, carotid US OK afib: -new onset, rvr initially, rate improved now (got iv dilt)--changed to CD 180 qd -AF down to 40s bpm overnight, likely vagal tone mediated--diltiazem decr'd to 120 qd--well controlled now -cont Eliquis (note: 5mg BID dose for AF indication, no loading dose as in PE tx) htn: -BP controlled parker: -improved, monitor cr
[2020-01-19 14:39] VITALS: BP 145/82; PULSE 75; TEMP 98.1
[2020-01-22] MEDS ORDERED: APIXABAN 5 MG TABLET PO SCH (00:01)
== END 2020-01-19 15:17 | disposition home health service (06) | DRG 61 ==
LOC: JER 17:58 → JERBED 18:55 → JICU 20:53 → J4S 01-15 15:15
PROVIDERS: ADMIT Internal Medicine; ATTEND Internal Medicine
DX: I63.49 Cerebral infarction due to embolism of other cerebral artery (principal); J96.00 Acute respiratory failure, unspecified whether with hypoxia or hypercapnia; N17.9 Acute kidney failure, unspecified; J45.909 Unspecified asthma, uncomplicated; I48.91 Unspecified atrial fibrillation; E78.1 Pure hyperglyceridemia; I12.9 Hypertensive chronic kidney disease with stage 1 through stage 4 chronic kidney disease, or unspecified chronic kidney disease; N18.9 Chronic kidney disease, unspecified; E66.9 Obesity, unspecified; R10.2 Pelvic and perineal pain; Z68.31 Body mass index [BMI] 31.0-31.9, adult; R29.703 NIHSS score 3
CPT/HCPCS: 36415; 70450-TC; 71045-TC-FY; 76856-TC; 80053; 80061; 81003; 82550; 83721; 83735; 84100; 84443; 84484; 85025; 85610; 85730; 86850; 86900; 86901; 93005; 93010; 93306-TC; 93880-TC; 97116-GP; 97161-GP; 99291; J2997; U0003

== ENCOUNTER 2021-04-23 08:09 | Inpatient (IN) | payer OTHER ==
[2021-04-23] MEDS ORDERED: levETIRAcetam 500 MG/5 ML INJECTION VIAL IVPB ONE ×3 (08:28→08:39)
[2021-04-23 09:49] LABS: INR 1.16 (0.83-1.09)
[2021-04-23 09:51] LABS: ACTIVATED PTT 19.2 SECONDS (25.2-36.5)
[2021-04-23 10:03] LABS: CHLORIDE 109 mmol/L (98-107); SODIUM 138 mmol/L (136-145)
[2021-04-23 10:05] LABS: ANION GAP 12 MMOL/L (8-16); BLOOD UREA NITROGEN 21.5 mg/dL (7-18); CALCIUM 8.8 mg/dL (8.5-10.1); CO2 17 mmol/L (21-32)
[2021-04-23 10:06] LABS: ALBUMIN 3.2 g/dl (3.4-5.0); GLUCOSE,RANDOM 227 mg/dL (74-106)
[2021-04-23 10:08] LABS: SGPT/ALT 19 U/L (13-61)
[2021-04-23 10:09] LABS: CREATININE 1.7 mg/dL (0.55-1.3); SGOT/AST 22 U/L (15-37)
[2021-04-23 10:10] LABS: BILIRUBIN,TOTAL 0.1 mg/dL (0.2-1)
[2021-04-23 10:12] LABS: ALK PHOS 110 U/L (45-117)
[2021-04-23] MEDS ORDERED: ONDANSETRON 4 MG/2 ML VIAL IVPUSH ONE (11:50)
[2021-04-23] MEDS ORDERED: ONDANSETRON 4 MG/2 ML VIAL ONE (11:51)
[2021-04-23 12:45] LABS: EPI CELLS 30 /uL (0-25.1); HYALINE CASTS 2 /uL (0-3.1); URINE APPEARANCE CLEAR; URINE BACTERIA 40 /uL (0-1359); URINE BILIRUBIN NEGATIVE (NEGATIVE); URINE COLOR YELLOW; URINE GLUCOSE (UA) TRACE (NEGATIVE); URINE KETONE NEGATIVE (NEGATIVE); URINE LEUK ESTERASE TRACE (NEGATIVE); URINE NITRITE NEGATIVE (NEGATIVE); URINE PROTEIN 3+ (NEGATIVE); URINE RBC 8 /uL (0-23.9); URINE UROBILINOGEN 0.2 mg/dL (0.2-1.0); URINE WBC 91 /uL (0-25.8)
[2021-04-23 13:05] LABS: BASO % 0.3 % (0-2.0); HEMATOCRIT 37.8 % (32.4-45.2); HEMOGLOBIN 12.3 GM/dL (10.7-15.3); LYMPH % 3.4 % (8-40); MCH 28.4 pg (25.7-33.7); MCHC 32.4 g/dl (32.0-36.0); MEAN CELL VOLUME 87.7 fl (80-96); MEAN PLT VOLUME 9.9 fl (7.5-11.1); MONO % 6.4 % (3.8-10.2); NEUT % 89.9 % (42.8-82.8); PLATELET COUNT 278 10^3/uL (134-434); RBC 4.31 M/mm3 (3.60-5.2); RDW 14.8 % (11.6-15.6); WHITE BLOOD COUNT 14.5 K/mm3 (4.0-10.0)
[2021-04-23] MEDS ORDERED: dilTIAZem HCL 50 MG/10 ML - 10 ML VIAL IVPUSH ONE (13:48)
[2021-04-23] MEDS ORDERED: dilTIAZem HCL 125 MG/25 ML - 25 ML VIAL ONE (14:09)
[2021-04-23] MEDS ORDERED: ACETAMINOPHEN 325 MG TABLET (FP) PO PRN (15:17)
[2021-04-23] MEDS ORDERED: LACTATED RINGERS SOLUTION 1,000 ML/1,000 ML INFUS.BAG IV SCH (16:45)
[2021-04-23] MEDS ORDERED: CEFTRIAXONE 1 GM in DEXTROSE 5%-WATER - 50 ML IVPB ONE ×2 (18:45→21:00)
[2021-04-23] MEDS ORDERED: cefTRIAXone SODIUM 1 GM VIAL ONE (20:48)
[2021-04-23] MEDS ORDERED: DEXTROSE 5%-WATER - 50 ML IVPB ONE (20:48)
[2021-04-23] MEDS: APIXABAN 5 MG TABLET PO SCH (21:24)
[2021-04-23] MEDS: levETIRAcetam 500 MG TABLET (FP) PO SCH (21:24)
[2021-04-23] MEDS ORDERED: HEPARIN NA (PORCINE) 5,000 UNITS/ML 1ML VIAL SQ SCH (22:00)
[2021-04-24 06:47] VITALS: BMI 25.6
[2021-04-24] MEDS ORDERED: AMOX TR/POT CLAV 875MG/125MG TABLETS (FP) PO SCH (08:00)
[2021-04-24 08:42] LABS: BASO % 0.1 % (0-2.0); HEMATOCRIT 34.2 % (32.4-45.2); HEMOGLOBIN 11.2 GM/dL (10.7-15.3); MCH 28.3 pg (25.7-33.7); MCHC 32.6 g/dl (32.0-36.0); MEAN CELL VOLUME 86.9 fl (80-96); MEAN PLT VOLUME 10.1 fl (7.5-11.1); MONO % 7.5 % (3.8-10.2); NEUT % 81.4 % (42.8-82.8); PLATELET COUNT 268 10^3/uL (134-434); RBC 3.94 M/mm3 (3.60-5.2); RDW 14.9 % (11.6-15.6); WHITE BLOOD COUNT 10.7 K/mm3 (4.0-10.0)
[2021-04-24 09:09] LABS: ALBUMIN 2.8 g/dl (3.4-5.0); BLOOD UREA NITROGEN 21.2 mg/dL (7-18); CALCIUM 8.6 mg/dL (8.5-10.1)
[2021-04-24 09:10] LABS: MAGNESIUM 2.6 mg/dL (1.8-2.4)
[2021-04-24 09:12] LABS: CREATININE 1.4 mg/dL (0.55-1.3); PHOSPHOROUS 3.6 mg/dL (2.5-4.9)
[2021-04-24 09:14] LABS: BILIRUBIN,TOTAL 0.2 mg/dL (0.2-1)
[2021-04-24] MEDS ORDERED: DEXTROSE 5%-WATER - 50 ML IVPB ONE (09:55)
[2021-04-24] MEDS ORDERED: cefTRIAXone SODIUM 1 GM VIAL ONE (09:55)
[2021-04-24] MEDS ORDERED: CEFTRIAXONE 1 GM in DEXTROSE 5%-WATER - 50 ML IVPB SCH (10:00)
[2021-04-24] MEDS: APIXABAN 5 MG TABLET PO SCH (10:18)
[2021-04-24] MEDS: levETIRAcetam 500 MG TABLET (FP) PO SCH (10:18)
[2021-04-24 14:20] VITALS: BP 145/82; PULSE 80; TEMP 99
[2021-04-24] MEDS ORDERED: ROSUVASTATIN CA 20 MG TABLET (FP) PO SCH (22:00)
== END 2021-04-24 18:07 | disposition home health service (06) | DRG 101 ==
LOC: JER 08:09 → JERBED 08:27 → J6S 18:33
PROVIDERS: ADMIT Internal Medicine; ATTEND Internal Medicine
DX: G40.909 Epilepsy, unspecified, not intractable, without status epilepticus (principal); I69.354 Hemiplegia and hemiparesis following cerebral infarction affecting left non-dominant side; E87.2 Acidosis; N17.9 Acute kidney failure, unspecified; E78.5 Hyperlipidemia, unspecified; I10 Essential (primary) hypertension; I48.91 Unspecified atrial fibrillation; J45.909 Unspecified asthma, uncomplicated; R40.4 Transient alteration of awareness; Z91.14 Patient's other noncompliance with medication regimen; R94.31 Abnormal electrocardiogram [ECG] [EKG]
CPT/HCPCS: 36415; 70450-TC; 71045-TC-FY; 80053; 80177; 81003; 82550; 82962; 83735; 84100; 84439; 84443; 84481; 84484; 85025; 85610; 85730; 87040; 87086; 93005; 93010; 97116-GP; 97161-GP; 99285-25; C9803; U0003; U0005

== ENCOUNTER 2021-12-01 19:21 | Inpatient (IN) | payer OTHER ==
[2021-12-01] MEDS ORDERED: MIDAZOLAM HCL 2 MG/2 ML SINGLE DOSE VIAL ONE (19:26)
[2021-12-01] MEDS ORDERED: levETIRAcetam 500 MG/5 ML INJECTION VIAL IVPB ONE ×2 (19:27→20:55)
[2021-12-01] MEDS ORDERED: RAPID SEQUENCE INTUBATION KIT NR ONE (19:31)
[2021-12-01] MEDS ORDERED: MIDAZOLAM IN 0.9 % SOD.CHLORID 1 MG/1 ML PLAST..BAG ONE (19:43)
[2021-12-01] MEDS ORDERED: PROPOFOL 1,000,000 MCG/100 ML VIAL ONE (19:48)
[2021-12-01] MEDS ORDERED: MIDAZOLAM HCL 2 MG/2 ML SINGLE DOSE VIAL IVPUSH ONE (19:59)
[2021-12-01] MEDS: PROPOFOL 1,000,000 MCG/100 ML VIAL IVPB SCH (20:00)
[2021-12-01] MEDS ORDERED: ROCURONIUM BROMIDE 50 MG/5 ML SYRINGE IV ONE (20:02)
[2021-12-01] MEDS ORDERED: MIDAZOLAM HCL 2 MG/2 ML SINGLE DOSE VIAL IM ONE (20:04)
[2021-12-01] MEDS: FENTANYL NS IVPB 500 MCG/100 ML BAG IVPB SCH (20:15)
[2021-12-01] MEDS ORDERED: MIDAZOLAM IN 0.9 % SOD.CHLORID 100 MG/100 ML PLAST..BAG IVPB SCH ×2 (20:30→22:15)
[2021-12-01] MEDS ORDERED: fentaNYL CITRATE 250 MCG/5 ML VIAL ONE (20:35)
[2021-12-01 21:13] LABS: BASO % 0.7 % (0-2.0); HEMATOCRIT 38.1 % (32.4-45.2); INR 1.18 (0.83-1.09); LYMPH % 27.1 % (8-40); MCH 28.7 pg (25.7-33.7); MCHC 31.5 g/dl (32.0-36.0); MEAN CELL VOLUME 91.2 fl (80-96); MEAN PLT VOLUME 10.5 fl (7.5-11.1); NEUT % 69.2 % (42.8-82.8); PLATELET COUNT 332 10^3/uL (134-434); PROTHROMBIN TIME (PATIENT) 13.6 SEC (9.7-13.0); RBC 4.18 M/mm3 (3.60-5.2); RDW 15.4 % (11.6-15.6); WHITE BLOOD COUNT 10.7 K/mm3 (4.0-10.0)
[2021-12-01 21:15] LABS: ACTIVATED PTT 28.9 SECONDS (25.2-36.5)
[2021-12-01 21:27] LABS: ALBUMIN 3.6 g/dl (3.4-5.0); BLOOD UREA NITROGEN 23.7 mg/dL (7-18); CALCIUM 8.6 mg/dL (8.5-10.1)
[2021-12-01 21:31] LABS: CREATININE 1.7 mg/dL (0.55-1.3)
[2021-12-01 21:32] LABS: BILIRUBIN,TOTAL 0.2 mg/dL (0.2-1)
[2021-12-01 21:33] LABS: TOT PROT 8.5 g/dl (6.4-8.2)
[2021-12-01] MEDS ORDERED: ROCURONIUM BROMIDE 50 MG/5 ML VIAL IV ONE (22:55)
[2021-12-01 23:30] LABS: URINE BARBITURATES NEGATIVE (NEGATIVE)
[2021-12-01 23:31] LABS: COCAINE, UR NEGATIVE (NEGATIVE); METHADONE, UR NEGATIVE (NEGATIVE); OPIATES, URI NEGATIVE (NEGATIVE); PHENCYCLIDINE,URINE NEGATIVE (NEGATIVE)
[2021-12-01 23:33] LABS: URINE AMPHETAMINES NEGATIVE (NEGATIVE); URINE BENZODIAZEPINES POSITIVE (NEGATIVE)
[2021-12-01 23:54] LABS: EPI CELLS 11 /uL (0-25.1); HYALINE CASTS 4 /uL (0-3.1); URINE APPEARANCE TURBID; URINE BACTERIA 1 /uL (0-1359); URINE BILIRUBIN NEGATIVE (NEGATIVE); URINE COLOR YELLOW; URINE GLUCOSE (UA) NEGATIVE (NEGATIVE); URINE KETONE NEGATIVE (NEGATIVE); URINE LEUK ESTERASE NEGATIVE (NEGATIVE); URINE NITRITE NEGATIVE (NEGATIVE); URINE PROTEIN 3+ (NEGATIVE); URINE RBC 10 /uL (0-23.9); URINE UROBILINOGEN 0.2 mg/dL (0.2-1.0); URINE WBC 10 /uL (0-25.8)
[2021-12-02] MEDS ORDERED: levETIRAcetam 500 MG/5 ML INJECTION VIAL IVPB ONE (04:40)
[2021-12-02] MEDS: LACTATED RINGERS SOLUTION 1,000 ML/1,000 ML INFUS.BAG IV SCH (05:46)
[2021-12-02 08:49] LABS: INR 1.28 (0.83-1.09); PROTHROMBIN TIME (PATIENT) 14.7 SEC (9.7-13.0)
[2021-12-02] MEDS: MUPIROCIN 2% TOPICAL OINTMENT FOR DECOLONIZATION NS SCH ×2 (09:47→21:12)
[2021-12-02] MEDS: APIXABAN 5 MG TABLET PO SCH ×2 (09:48→21:12)
[2021-12-02] MEDS ORDERED: PANTOPRAZOLE 40 MG TABLET PO SCH (10:00)
[2021-12-02 10:57] LABS: HEMATOCRIT 35.6 % (32.4-45.2); HEMOGLOBIN 11.6 GM/dL (10.7-15.3); MCH 28.9 pg (25.7-33.7); MCHC 32.4 g/dl (32.0-36.0); MEAN CELL VOLUME 89.2 fl (80-96); MEAN PLT VOLUME 9.7 fl (7.5-11.1); NEUT % 76.2 % (42.8-82.8); PLATELET COUNT 245 10^3/uL (134-434); RBC 3.99 M/mm3 (3.60-5.2); RDW 15.1 % (11.6-15.6); WHITE BLOOD COUNT 16.4 K/mm3 (4.0-10.0)
[2021-12-02 10:58] LABS: BASO % 0.2 % (0-2.0); LYMPH % 8.1 % (8-40); MONO % 15.5 % (3.8-10.2)
[2021-12-02 11:10] LABS: MAGNESIUM 2.2 mg/dL (1.8-2.4)
[2021-12-02 11:13] LABS: PHOSPHOROUS 5.7 mg/dL (2.5-4.9)
[2021-12-02 11:22] LABS: CALCIUM 8.3 mg/dL (8.5-10.1)
[2021-12-02 11:23] LABS: BLOOD UREA NITROGEN 26.1 mg/dL (7-18); MAGNESIUM 2.3 mg/dL (1.8-2.4)
[2021-12-02 11:25] LABS: CREATININE 1.4 mg/dL (0.55-1.3)
[2021-12-02 11:26] LABS: PHOSPHOROUS 3.6 mg/dL (2.5-4.9)
[2021-12-02 11:27] LABS: BILIRUBIN,TOTAL 0.4 mg/dL (0.2-1); TOT PROT 7.1 g/dl (6.4-8.2)
[2021-12-02] MEDS ORDERED: PNEUMOC 20-VAL CONJ-DIP CRM/PF 0.5 ML SYRINGE IM ONE (14:00)
[2021-12-02] MEDS: levETIRAcetam 500 MG/5 ML INJECTION VIAL IVPB SCH (17:07)
[2021-12-02] MEDS: FENTANYL NS IVPB 500 MCG/100 ML BAG IVPB SCH ×2 (17:49→21:13)
[2021-12-02] MEDS: CHLORHEXIDINE GLUCONATE 4% CLEANSER FOR DECOLONIZATION TP SCH (21:12)
[2021-12-02] MEDS: PROPOFOL 1,000,000 MCG/100 ML VIAL IVPB SCH (21:13)
[2021-12-03] MEDS: LACTATED RINGERS SOLUTION 1,000 ML/1,000 ML INFUS.BAG IV SCH (06:48)
[2021-12-03] MEDS: levETIRAcetam 500 MG/5 ML INJECTION VIAL IVPB SCH ×2 (06:48→16:18)
[2021-12-03 09:30] LABS: BASO % 0.5 % (0-2.0); LYMPH % 9.4 % (8-40); MCH 28.2 pg (25.7-33.7); MCHC 31.3 g/dl (32.0-36.0); MEAN CELL VOLUME 90.1 fl (80-96); MEAN PLT VOLUME 9.9 fl (7.5-11.1); MONO % 9.5 % (3.8-10.2); NEUT % 80.6 % (42.8-82.8); PLATELET COUNT 241 10^3/uL (134-434); RBC 3.55 M/mm3 (3.60-5.2); RDW 15.1 % (11.6-15.6); WHITE BLOOD COUNT 11.1 K/mm3 (4.0-10.0)
[2021-12-03] MEDS ORDERED: LOSARTAN POTASSIUM 50 MG TABLET PO SCH (10:00)
[2021-12-03] MEDS: MUPIROCIN 2% TOPICAL OINTMENT FOR DECOLONIZATION NS SCH ×2 (10:02→21:13)
[2021-12-03] MEDS: PANTOPRAZOLE SODIUM 40 MG VIAL IVPUSH SCH (10:03)
[2021-12-03] MEDS: APIXABAN 5 MG TABLET PO SCH (10:03)
[2021-12-03] MEDS: FENTANYL NS IVPB 500 MCG/100 ML BAG IVPB SCH ×2 (10:04→21:14)
[2021-12-03 10:10] LABS: BLOOD UREA NITROGEN 29.1 mg/dL (7-18)
[2021-12-03 10:16] LABS: CALCIUM 8.3 mg/dL (8.5-10.1)
[2021-12-03 10:17] LABS: ALBUMIN 2.6 g/dl (3.4-5.0); MAGNESIUM 2.3 mg/dL (1.8-2.4)
[2021-12-03 10:19] LABS: PHOSPHOROUS 2.8 mg/dL (2.5-4.9)
[2021-12-03 10:20] LABS: CREATININE 1.6 mg/dL (0.55-1.3)
[2021-12-03 10:21] LABS: TOT PROT 6.4 g/dl (6.4-8.2)
[2021-12-03 10:22] LABS: BILIRUBIN,TOTAL 0.3 mg/dL (0.2-1)
[2021-12-03] MEDS ORDERED: dilTIAZem HCL 50 MG/10 ML - 10 ML VIAL IVPUSH ONE (10:51)
[2021-12-03] MEDS ORDERED: DEXTROSE 5%-WATER - 50 ML IVPB ONE ×2 (10:56→11:53)
[2021-12-03] MEDS ORDERED: PIPERACILLIN/TAZOBACTAM 2.25 GM VIAL IVPB ONE (10:56)
[2021-12-03] MEDS ORDERED: CEFTRIAXONE 1 GM in DEXTROSE 5%-WATER - 50 ML IVPB SCH (11:00)
[2021-12-03] MEDS: methylPREDNISolone NA SUCC 40 MG/1 ML VIAL IVPB SCH ×2 (11:00→17:29)
[2021-12-03] MEDS ORDERED: PIPERACILLIN/TAZOB 2.25 GM 2.25 GM in DEXTROSE 5%-WATER - 50 ML IVPB SCH (11:00)
[2021-12-03] MEDS: ALBUTEROL SO4 2.5/IPRATROPIUM 0.5 INH SOL 3 ML VIAL.NEB. NEB SCH ×3 (11:25→20:00)
[2021-12-03] MEDS ORDERED: cefTRIAXone SODIUM 1 GM VIAL ONE (11:53)
[2021-12-03] MEDS ORDERED: dilTIAZem HCL 30 MG TABLET PO SCH ×2 (13:14→18:00)
[2021-12-03] MEDS ORDERED: dilTIAZem HCL 30 MG TABLET NGT SCH (14:37)
[2021-12-03] MEDS: dilTIAZem HCL 30 MG TABLET OG SCH ×2 (17:29→23:23)
[2021-12-03] MEDS: APIXABAN 5 MG TABLET OG SCH (21:13)
[2021-12-03] MEDS: CHLORHEXIDINE GLUCONATE 4% CLEANSER FOR DECOLONIZATION TP SCH (21:14)
[2021-12-03] MEDS: PROPOFOL 1,000,000 MCG/100 ML VIAL IVPB SCH (21:14)
[2021-12-04] MEDS: methylPREDNISolone NA SUCC 40 MG/1 ML VIAL IVPB SCH ×2 (01:54→09:26)
[2021-12-04] MEDS: PROPOFOL 1,000,000 MCG/100 ML VIAL IVPB SCH ×2 (02:48→07:55)
[2021-12-04] MEDS: dilTIAZem HCL 30 MG TABLET OG SCH (05:51)
[2021-12-04] MEDS: levETIRAcetam 500 MG/5 ML INJECTION VIAL IVPB SCH ×3 (06:31→21:13)
[2021-12-04 06:44] LABS: HEMATOCRIT 29.9 % (32.4-45.2); HEMOGLOBIN 9.8 GM/dL (10.7-15.3); MCH 28.7 pg (25.7-33.7); MCHC 32.6 g/dl (32.0-36.0); MEAN PLT VOLUME 9.8 fl (7.5-11.1); PLATELET COUNT 233 10^3/uL (134-434); RBC 3.39 M/mm3 (3.60-5.2); RDW 15.4 % (11.6-15.6); WHITE BLOOD COUNT 16.1 K/mm3 (4.0-10.0)
[2021-12-04] MEDS ORDERED: levETIRAcetam 500 MG/5 ML INJECTION VIAL IVPB SCH (07:03)
[2021-12-04 07:08] LABS: CALCIUM 7.9 mg/dL (8.5-10.1)
[2021-12-04 07:09] LABS: ALBUMIN 2.4 g/dl (3.4-5.0)
[2021-12-04 07:12] LABS: CREATININE 1.6 mg/dL (0.55-1.3)
[2021-12-04 07:13] LABS: BILIRUBIN,TOTAL 0.2 mg/dL (0.2-1)
[2021-12-04 07:14] LABS: TOT PROT 6.3 g/dl (6.4-8.2)
[2021-12-04] MEDS: ALBUTEROL SO4 2.5/IPRATROPIUM 0.5 INH SOL 3 ML VIAL.NEB. NEB SCH (08:00)
[2021-12-04] MEDS ORDERED: SODIUM CHLORIDE 0.45% 1,000 ML IV SCH (08:30)
[2021-12-04] MEDS ORDERED: cefTRIAXone SODIUM 1 GM VIAL ONE (09:21)
[2021-12-04] MEDS ORDERED: DEXTROSE 5%-WATER - 50 ML IVPB ONE (09:22)
[2021-12-04] MEDS: PANTOPRAZOLE SODIUM 40 MG VIAL IVPUSH SCH (09:26)
[2021-12-04] MEDS: CEFTRIAXONE 1 GM in DEXTROSE 5%-WATER - 50 ML IVPB SCH (09:27)
[2021-12-04] MEDS: APIXABAN 5 MG TABLET OG SCH (09:27)
[2021-12-04] MEDS: MUPIROCIN 2% TOPICAL OINTMENT FOR DECOLONIZATION NS SCH ×2 (09:52→21:14)
[2021-12-04] MEDS ORDERED: DEXMEDETOMIDINE IN 0.9 % NACL 400 MCG/100 ML VIAL IVPB SCH (11:00)
[2021-12-04] MEDS: ALBUTEROL SO4 2.5/IPRATROPIUM 0.5 INH SOL 3 ML VIAL.NEB. NEB PRN ×2 (11:31→22:14)
[2021-12-04] MEDS ORDERED: dilTIAZem HCL 50 MG/10 ML - 10 ML VIAL IVPUSH PRN (13:06)
[2021-12-04] MEDS ORDERED: hydrALAZINE HCL 20 MG/ML VIAL IVPUSH PRN (13:25)
[2021-12-04] MEDS ORDERED: LABETALOL HCL 5 MG/1 ML (100MG/20 ML VIAL) IVPUSH ONE (13:25)
[2021-12-04] MEDS ORDERED: dilTIAZem HCL 125 MG/25 ML - 25 ML VIAL ONE (14:04)
[2021-12-04] MEDS ORDERED: MIDAZOLAM HCL 2 MG/2 ML SINGLE DOSE VIAL IVPUSH ONE ×3 (14:30→22:15)
[2021-12-04] MEDS ORDERED: PIPERACILLIN/TAZOB 2.25 GM 2.25 GM in DEXTROSE 5%-WATER - 50 ML IVPB SCH (18:00)
[2021-12-04] MEDS: FENTANYL NS IVPB 500 MCG/100 ML BAG IVPB SCH (20:53)
[2021-12-04] MEDS: CHLORHEXIDINE GLUCONATE 4% CLEANSER FOR DECOLONIZATION TP SCH (21:21)
[2021-12-04] MEDS: hydrALAZINE HCL 20 MG/ML VIAL IVPUSH PRN (21:21)
[2021-12-04 21:45] LABS: EPI CELLS >36 /uL (0-25.1); HYALINE CASTS 8 /uL (0-3.1); URINE APPEARANCE TURBID; URINE BILIRUBIN 1+ (NEGATIVE); URINE COLOR RED; URINE GLUCOSE (UA) NEGATIVE (NEGATIVE); URINE KETONE NEGATIVE (NEGATIVE); URINE LEUK ESTERASE 3+ (NEGATIVE); URINE NITRITE POSITIVE (NEGATIVE); URINE PROTEIN 3+ (NEGATIVE); URINE RBC 45971 /uL (0-23.9); URINE UROBILINOGEN 0.2 mg/dL (0.2-1.0); URINE WBC 465 /uL (0-25.8)
[2021-12-04] MEDS ORDERED: ENOXAPARIN NA (PORCINE) 80 MG/0.8 ML DISP.SYRIN SQ SCH (22:00)
[2021-12-05] MEDS: hydrALAZINE HCL 20 MG/ML VIAL IVPUSH PRN ×2 (04:26→16:44)
[2021-12-05] MEDS ORDERED: cefTRIAXone SODIUM 1 GM VIAL ONE (09:58)
[2021-12-05] MEDS ORDERED: DEXTROSE 5%-WATER - 50 ML IVPB ONE (09:58)
[2021-12-05] MEDS: CEFTRIAXONE 1 GM in DEXTROSE 5%-WATER - 50 ML IVPB SCH (10:18)
[2021-12-05] MEDS: APIXABAN 5 MG TABLET PO SCH ×2 (10:18→21:04)
[2021-12-05] MEDS: LISINOPRIL 20 MG TABLET PO SCH (10:18)
[2021-12-05] MEDS: ROSUVASTATIN CA 20 MG TABLET PO SCH (10:18)
[2021-12-05] MEDS: PANTOPRAZOLE SODIUM 40 MG VIAL IVPUSH SCH (10:19)
[2021-12-05] MEDS: MUPIROCIN 2% TOPICAL OINTMENT FOR DECOLONIZATION NS SCH ×2 (10:19→21:07)
[2021-12-05] MEDS: methylPREDNISolone NA SUCC 40 MG/1 ML VIAL IVPB SCH (10:19)
[2021-12-05] MEDS: levETIRAcetam 500 MG/5 ML INJECTION VIAL IVPB SCH ×2 (10:19→21:05)
[2021-12-05 12:43] LABS: HEMOGLOBIN 10.2 GM/dL (10.7-15.3); MCHC 31.8 g/dl (32.0-36.0); MEAN CELL VOLUME 88.3 fl (80-96); MEAN PLT VOLUME 10.3 fl (7.5-11.1); PLATELET COUNT 271 10^3/uL (134-434); RBC 3.63 M/mm3 (3.60-5.2); RDW 15.2 % (11.6-15.6)
[2021-12-05 12:52] VITALS: BMI 33.1
[2021-12-05 13:07] LABS: CALCIUM 8.8 mg/dL (8.5-10.1)
[2021-12-05 13:08] LABS: ALBUMIN 2.7 g/dl (3.4-5.0); BLOOD UREA NITROGEN 27.5 mg/dL (7-18)
[2021-12-05 13:11] LABS: CREATININE 1.5 mg/dL (0.55-1.3)
[2021-12-05 13:13] LABS: BILIRUBIN,TOTAL 0.2 mg/dL (0.2-1); TOT PROT 7.4 g/dl (6.4-8.2)
[2021-12-05] MEDS ORDERED: dilTIAZem HCL 50 MG/10 ML - 10 ML VIAL IVPUSH ONE ×3 (17:13→18:56)
[2021-12-05] MEDS ORDERED: dilTIAZem HCL 60 MG TABLET PO ONE (18:56)
[2021-12-05] MEDS: CHLORHEXIDINE GLUCONATE 4% CLEANSER FOR DECOLONIZATION TP SCH (21:07)
[2021-12-06] MEDS ORDERED: MELATONIN 5 MG TABLETS PO ONE (01:51)
[2021-12-06] MEDS: ALBUTEROL SO4 2.5/IPRATROPIUM 0.5 INH SOL 3 ML VIAL.NEB. NEB PRN (03:10)
[2021-12-06 07:12] LABS: LYMPH % 5.7 % (8-40); MCH 28.3 pg (25.7-33.7); MCHC 32.1 g/dl (32.0-36.0); MEAN CELL VOLUME 88.1 fl (80-96); MEAN PLT VOLUME 10.5 fl (7.5-11.1); MONO % 7.5 % (3.8-10.2); NEUT % 86.8 % (42.8-82.8); PLATELET COUNT 294 10^3/uL (134-434); RBC 3.52 M/mm3 (3.60-5.2); RDW 15.3 % (11.6-15.6); WHITE BLOOD COUNT 14.2 K/mm3 (4.0-10.0)
[2021-12-06 07:40] LABS: ALBUMIN 2.8 g/dl (3.4-5.0); CALCIUM 8.6 mg/dL (8.5-10.1); MAGNESIUM 2.3 mg/dL (1.8-2.4)
[2021-12-06 07:41] LABS: PHOSPHOROUS 2.6 mg/dL (2.5-4.9)
[2021-12-06 07:42] LABS: BILIRUBIN,TOTAL 0.2 mg/dL (0.2-1)
[2021-12-06 07:43] LABS: BLOOD UREA NITROGEN 30.3 mg/dL (7-18)
[2021-12-06 07:45] LABS: CREATININE 1.5 mg/dL (0.55-1.3)
[2021-12-06] MEDS ORDERED: cefTRIAXone SODIUM 1 GM VIAL ONE (09:15)
[2021-12-06] MEDS ORDERED: DEXTROSE 5%-WATER - 50 ML IVPB ONE (09:15)
[2021-12-06] MEDS: levETIRAcetam 500 MG/5 ML INJECTION VIAL IVPB SCH ×2 (09:31→22:01)
[2021-12-06] MEDS: ROSUVASTATIN CA 20 MG TABLET PO SCH (09:31)
[2021-12-06] MEDS: LISINOPRIL 20 MG TABLET PO SCH (09:31)
[2021-12-06] MEDS: CEFTRIAXONE 1 GM in DEXTROSE 5%-WATER - 50 ML IVPB SCH (09:32)
[2021-12-06] MEDS: methylPREDNISolone NA SUCC 40 MG/1 ML VIAL IVPB SCH (09:32)
[2021-12-06] MEDS: MUPIROCIN 2% TOPICAL OINTMENT FOR DECOLONIZATION NS SCH (09:32)
[2021-12-06] MEDS: APIXABAN 5 MG TABLET PO SCH ×2 (09:32→22:01)
[2021-12-06] MEDS: PANTOPRAZOLE SODIUM 40 MG VIAL IVPUSH SCH (09:32)
[2021-12-06] MEDS ORDERED: SIMETHICONE 80 MG TAB.CHEW (FP) PO PRN (14:36)
[2021-12-06] MEDS ORDERED: ALBUTEROL SO4 2.5/IPRATROPIUM 0.5 INH SOL 3 ML VIAL.NEB. NEB PRN (20:29)
[2021-12-06] MEDS ORDERED: MUPIROCIN 2% TOPICAL OINTMENT FOR DECOLONIZATION NS SCH (22:00)
[2021-12-06] MEDS ORDERED: CHLORHEXIDINE GLUCONATE 4% CLEANSER FOR DECOLONIZATION TP SCH (22:00)
[2021-12-06] MEDS ORDERED: guaiFENesin 200 MG/10 ML 10 ML UNIT-DOSE CUPS PO ONE (22:45)
[2021-12-07 08:28] LABS: BASO % 0.1 % (0-2.0); HEMATOCRIT 30.9 % (32.4-45.2); HEMOGLOBIN 10.1 GM/dL (10.7-15.3); LYMPH % 7.6 % (8-40); MCH 28.7 pg (25.7-33.7); MCHC 32.8 g/dl (32.0-36.0); MEAN CELL VOLUME 87.6 fl (80-96); MEAN PLT VOLUME 10.1 fl (7.5-11.1); MONO % 9.3 % (3.8-10.2); PLATELET COUNT 280 10^3/uL (134-434); RBC 3.52 M/mm3 (3.60-5.2); RDW 15.6 % (11.6-15.6); WHITE BLOOD COUNT 9.3 K/mm3 (4.0-10.0)
[2021-12-07 08:35] LABS: BLOOD UREA NITROGEN 31.9 mg/dL (7-18)
[2021-12-07 08:39] LABS: CREATININE 1.5 mg/dL (0.55-1.3)
[2021-12-07] MEDS: levETIRAcetam 500 MG/5 ML INJECTION VIAL IVPB SCH ×2 (09:10→23:11)
[2021-12-07] MEDS: APIXABAN 5 MG TABLET PO SCH ×2 (09:10→23:10)
[2021-12-07] MEDS ORDERED: cefTRIAXone SODIUM 1 GM VIAL ONE (09:13)
[2021-12-07] MEDS ORDERED: DEXTROSE 5%-WATER - 50 ML IVPB ONE (09:13)
[2021-12-07] MEDS: PANTOPRAZOLE SODIUM 40 MG VIAL IVPUSH SCH (09:14)
[2021-12-07] MEDS: ROSUVASTATIN CA 20 MG TABLET PO SCH (09:14)
[2021-12-07] MEDS ORDERED: LISINOPRIL 20 MG TABLET PO SCH (10:00)
[2021-12-07] MEDS ORDERED: CEFTRIAXONE 1 GM in DEXTROSE 5%-WATER - 50 ML IVPB SCH (10:00)
[2021-12-07] MEDS ORDERED: LISINOPRIL 20 MG TABLET PO ONE (13:45)
[2021-12-07] MEDS: guaiFENesin 200 MG/10 ML 10 ML UNIT-DOSE CUPS PO PRN ×2 (13:52→21:38)
[2021-12-07] MEDS ORDERED: amLODIPine BESYLATE 5 MG TABLET (FP) PO ONE (17:45)
[2021-12-07] MEDS ORDERED: hydrALAZINE HCL 25 MG TABLET (FP) PO ONE (17:46)
[2021-12-08] MEDS: guaiFENesin 200 MG/10 ML 10 ML UNIT-DOSE CUPS PO PRN ×2 (05:57→13:04)
[2021-12-08 07:03] LABS: BASO % 0.2 % (0-2.0); HEMATOCRIT 30.8 % (32.4-45.2); HEMOGLOBIN 10.1 GM/dL (10.7-15.3); LYMPH % 16.2 % (8-40); MCH 28.6 pg (25.7-33.7); MCHC 32.9 g/dl (32.0-36.0); MEAN CELL VOLUME 86.8 fl (80-96); MONO % 11.4 % (3.8-10.2); NEUT % 72.2 % (42.8-82.8); PLATELET COUNT 272 10^3/uL (134-434); RBC 3.54 M/mm3 (3.60-5.2); RDW 15.5 % (11.6-15.6)
[2021-12-08 07:19] LABS: BLOOD UREA NITROGEN 28.1 mg/dL (7-18); CALCIUM 8.8 mg/dL (8.5-10.1)
[2021-12-08 07:22] LABS: CREATININE 1.5 mg/dL (0.55-1.3)
[2021-12-08] MEDS: APIXABAN 5 MG TABLET PO SCH (09:59)
[2021-12-08] MEDS: levETIRAcetam 500 MG/5 ML INJECTION VIAL IVPB SCH (10:00)
[2021-12-08] MEDS ORDERED: LISINOPRIL 20 MG TABLET PO SCH (10:00)
[2021-12-08] MEDS: PANTOPRAZOLE SODIUM 40 MG VIAL IVPUSH SCH (10:00)
[2021-12-08] MEDS: ROSUVASTATIN CA 20 MG TABLET PO SCH (10:00)
[2021-12-08] MEDS ORDERED: amLODIPine BESYLATE 5 MG TABLET (FP) PO SCH (10:45)
[2021-12-08 15:57] VITALS: BP 146/76; PULSE 88; TEMP 97.9
== END 2021-12-08 17:39 | disposition home health service (06) | DRG 208 ==
LOC: JER 19:21 → JERBED 20:08 → JICU 23:17 → J4W 12-06 20:28
PROVIDERS: ADMIT Internal Medicine; ATTEND Internal Medicine
PROC: 5A1945Z Respiratory Ventilation, 24-96 Consecutive Hours (ICD-10-PCS; principal; 2021-12-01)
PROC: 0BH17EZ Insertion of Endotracheal Airway into Trachea, Via Natural or Artificial Opening (ICD-10-PCS; 2021-12-01)
DX: J18.9 Pneumonia, unspecified organism (principal); J96.01 Acute respiratory failure with hypoxia; I69.354 Hemiplegia and hemiparesis following cerebral infarction affecting left non-dominant side; I48.92 Unspecified atrial flutter; N18.4 Chronic kidney disease, stage 4 (severe); N17.9 Acute kidney failure, unspecified; J45.901 Unspecified asthma with (acute) exacerbation; J98.11 Atelectasis; Z79.01 Long term (current) use of anticoagulants; J45.909 Unspecified asthma, uncomplicated; E78.5 Hyperlipidemia, unspecified; I48.0 Paroxysmal atrial fibrillation; I12.9 Hypertensive chronic kidney disease with stage 1 through stage 4 chronic kidney disease, or unspecified chronic kidney disease; K72.90 Hepatic failure, unspecified without coma; G40.901 Epilepsy, unspecified, not intractable, with status epilepticus
CPT/HCPCS: 0241U-QW; 36415; 70450-TC; 71045-TC-FY; 71250-TC; 72125-TC; 80048; 80053; 80177; 80307; 81003; 82140; 82550; 82962; 83605; 83735; 84100; 84484; 85025; 85027; 85610; 85730; 86038; 86704; 86803; 87040; 87070; 87077; 87086; 87205; 87340; 87899; 90677; 93005; 93010; 94002; 94640; 97116-GP; 99291; 99292; C9803-CS; U0003; U0005

== ENCOUNTER 2022-07-29 11:21 | Day surgery (SDC) | payer OTHER ==
[2022-07-25 13:19] VITALS: BMI 28.3
[2022-07-29] MEDS ORDERED: PROPOFOL 40 ML ONE (12:29)
[2022-07-29 13:42] VITALS: RESP 18
[2022-07-29 13:44] VITALS: BP 142/85; PULSE 75; TEMP 98
== END 2022-07-29 14:16 | disposition home or self-care (01) ==
LOC: FASU-ENDO 11:21
PROVIDERS: ATTEND Internal Medicine Gastroenterology
PROC: 0DBL8ZX Excision of Transverse Colon, Via Natural or Artificial Opening Endoscopic, Diagnostic (ICD-10-PCS; 2022-07-29)
PROC: 0DB98ZX Excision of Duodenum, Via Natural or Artificial Opening Endoscopic, Diagnostic (ICD-10-PCS; 2022-07-29)
PROC: 0DB78ZX Excision of Stomach, Pylorus, Via Natural or Artificial Opening Endoscopic, Diagnostic (ICD-10-PCS; 2022-07-29)
PROC: 0DB68ZX Excision of Stomach, Via Natural or Artificial Opening Endoscopic, Diagnostic (ICD-10-PCS; 2022-07-29)
PROC: 0DBH8ZX Excision of Cecum, Via Natural or Artificial Opening Endoscopic, Diagnostic (ICD-10-PCS; principal; 2022-07-29 12:48)
DX: D12.0 Benign neoplasm of cecum (principal); D12.3 Benign neoplasm of transverse colon; K31.7 Polyp of stomach and duodenum; K29.70 Gastritis, unspecified, without bleeding; K29.80 Duodenitis without bleeding; D50.9 Iron deficiency anemia, unspecified
CPT/HCPCS: 88305-TC; 88342-TC

== ENCOUNTER 2023-04-15 21:47 | Observation (INO) | payer OTHER ==
[2023-04-15 21:57] VITALS: BMI 31.4
[2023-04-15 23:55] LABS: BASO % 0.6 % (0-2.0); HEMATOCRIT 34.8 % (32.4-45.2); HEMOGLOBIN 11.5 GM/dL (10.7-15.3); MCH 28.9 pg (25.7-33.7); MEAN CELL VOLUME 87.6 fl (80-96); MEAN PLT VOLUME 10.1 fl (7.5-11.1); MONO % 10.6 % (3.8-10.2); NEUT % 67.8 % (42.8-82.8); PLATELET COUNT 254 10^3/uL (134-434); RBC 3.98 M/mm3 (3.60-5.2); RDW 14.7 % (11.6-15.6); WHITE BLOOD COUNT 6.9 K/mm3 (4.0-10.0)
[2023-04-16 00:12] LABS: POTASSIUM 4.2 mmol/L (3.5-5.1)
[2023-04-16 00:15] LABS: ALBUMIN 3.6 g/dl (3.4-5.0); CALCIUM 8.7 mg/dL (8.5-10.1); MAGNESIUM 2.1 mg/dL (1.8-2.4)
[2023-04-16 00:18] LABS: CREATININE 2.4 mg/dL (0.55-1.3); PHOSPHOROUS 3.8 mg/dL (2.5-4.9)
[2023-04-16 00:20] LABS: BILIRUBIN,TOTAL 0.1 mg/dL (0.2-1); TOT PROT 8.2 g/dl (6.4-8.2)
[2023-04-16 00:23] LABS: INR 1.28 (0.83-1.09); N-TERMINAL BNP 541.2 pg/ml (5-450); PROTHROMBIN TIME (PATIENT) 14.8 SEC (9.7-13.0)
[2023-04-16 00:26] LABS: ACTIVATED PTT 33.9 SECONDS (25.2-36.5)
[2023-04-16] MEDS ORDERED: SODIUM CHLORIDE 0.9% 500 ML INFUS.BAG IV ONE (00:52)
[2023-04-16] MEDS ORDERED: LACTATED RINGERS SOLUTION 1000 ML INFUS.BAG IV ONE (01:08)
[2023-04-16 01:33] LABS: EPI CELLS >36 /uL (0-25.1); HYALINE CASTS 1 /uL (0-3.1); URINE APPEARANCE CLEAR; URINE BACTERIA 1473 /uL (0-1359); URINE BILIRUBIN NEGATIVE (NEGATIVE); URINE COLOR YELLOW; URINE GLUCOSE (UA) NEGATIVE (NEGATIVE); URINE KETONE NEGATIVE (NEGATIVE); URINE LEUK ESTERASE 1+ (NEGATIVE); URINE NITRITE NEGATIVE (NEGATIVE); URINE PROTEIN 1+ (NEGATIVE); URINE RBC 4 /uL (0-23.9); URINE UROBILINOGEN 0.2 mg/dL (0.2-1.0); URINE WBC 77 /uL (0-25.8)
[2023-04-16 05:47] VITALS: RESP 18
[2023-04-16] MEDS ORDERED: ACETAMINOPHEN 325 MG TABLET (FP) PO PRN (09:01)
[2023-04-16 09:20] LABS: HEMATOCRIT 31.6 % (32.4-45.2); MCH 28.2 pg (25.7-33.7); MCHC 31.6 g/dl (32.0-36.0); MEAN CELL VOLUME 89.3 fl (80-96); MEAN PLT VOLUME 10.1 fl (7.5-11.1); PLATELET COUNT 213 10^3/uL (134-434); RBC 3.54 M/mm3 (3.60-5.2); RDW 14.3 % (11.6-15.6); WHITE BLOOD COUNT 6.8 K/mm3 (4.0-10.0)
[2023-04-16 09:44] LABS: POTASSIUM 4.1 mmol/L (3.5-5.1)
[2023-04-16] MEDS: LIDOCAINE 4% PATCH TP SCH (09:53)
[2023-04-16] MEDS: APIXABAN 5 MG TABLET PO SCH ×2 (09:53→21:31)
[2023-04-16 09:54] LABS: CALCIUM 8.1 mg/dL (8.5-10.1)
[2023-04-16 09:55] LABS: ALBUMIN 2.9 g/dl (3.4-5.0)
[2023-04-16 09:58] LABS: BILIRUBIN,TOTAL 0.2 mg/dL (0.2-1); CREATININE 1.9 mg/dL (0.55-1.3); TOT PROT 6.6 g/dl (6.4-8.2)
[2023-04-16] MEDS ORDERED: PATIENT'S OWN MEDICATION (NON-FORMULARY) (Losartan Potassium [Cozaar] 100 MG Tablet) PO SCH (10:00)
[2023-04-16] MEDS ORDERED: levETIRAcetam 500 MG TABLET (FP) PO SCH ×2 (10:00→22:00)
[2023-04-16] MEDS ORDERED: ROSUVASTATIN CA 20 MG TABLET PO SCH ×2 (10:00→23:28)
[2023-04-16] MEDS: FLUTICASONE/SALMETEROL (WIXELA) 100 MCG/50 MCG DISKUS IH SCH ×2 (11:36→21:31)
[2023-04-16] MEDS: ACETAMINOPHEN 325 MG TABLET (FP) PO SCH ×3 (13:11→21:30)
[2023-04-16] MEDS: levETIRAcetam 500 MG TABLET (FP) PO SCH (21:31)
[2023-04-16] MEDS ORDERED: ROSUVASTATIN CA 10 MG TABLET PO SCH (22:00)
[2023-04-16] MEDS ORDERED: ROSUVASTATIN CA 40 MG TABLET PO SCH (22:00)
[2023-04-16] MEDS ORDERED: LIDOCAINE PATCH REMOVAL MC SCH (22:00)
[2023-04-17] MEDS: ACETAMINOPHEN 325 MG TABLET (FP) PO SCH ×2 (06:40→13:44)
[2023-04-17] MEDS: APIXABAN 5 MG TABLET PO SCH (09:55)
[2023-04-17] MEDS: levETIRAcetam 500 MG TABLET (FP) PO SCH (09:55)
[2023-04-17] MEDS: LIDOCAINE 4% PATCH TP SCH (09:56)
[2023-04-17 10:39] LABS: HEMATOCRIT 29.8 % (32.4-45.2); HEMOGLOBIN 9.7 GM/dL (10.7-15.3); MCH 29.2 pg (25.7-33.7); MCHC 32.5 g/dl (32.0-36.0); MEAN CELL VOLUME 89.8 fl (80-96); MEAN PLT VOLUME 10.4 fl (7.5-11.1); PLATELET COUNT 217 10^3/uL (134-434); RBC 3.32 M/mm3 (3.60-5.2); RDW 14.6 % (11.6-15.6); WHITE BLOOD COUNT 6.1 K/mm3 (4.0-10.0)
[2023-04-17 10:59] LABS: POTASSIUM 4.2 mmol/L (3.5-5.1)
[2023-04-17 11:04] LABS: CALCIUM 8.7 mg/dL (8.5-10.1)
[2023-04-17 11:05] LABS: BLOOD UREA NITROGEN 24.7 mg/dL (7-18)
[2023-04-17 11:06] LABS: ALBUMIN 2.9 g/dl (3.4-5.0)
[2023-04-17 11:08] LABS: CREATININE 1.7 mg/dL (0.55-1.3)
[2023-04-17] MEDS: FLUTICASONE/SALMETEROL (WIXELA) 100 MCG/50 MCG DISKUS IH SCH (11:08)
[2023-04-17 11:09] LABS: BILIRUBIN,TOTAL 0.2 mg/dL (0.2-1); TOT PROT 6.7 g/dl (6.4-8.2)
[2023-04-17 18:36] VITALS: BP 136/73; PULSE 74; TEMP 98.1
== END 2023-04-17 20:59 | disposition home or self-care (01) ==
LOC: JER 21:47 → JERBED 04-16 00:53 → J6S 04-16 05:04
PROVIDERS: ADMIT Internal Medicine; ATTEND Internal Medicine
PROC: 3E0337Z Introduction of Electrolytic and Water Balance Substance into Peripheral Vein, Percutaneous Approach (ICD-10-PCS; principal; 2023-04-16)
PROC: 3E0337Z Introduction of Electrolytic and Water Balance Substance into Peripheral Vein, Percutaneous Approach (ICD-10-PCS; 2023-04-16)
DX: E11.22 Type 2 diabetes mellitus with diabetic chronic kidney disease (principal); E78.5 Hyperlipidemia, unspecified; I48.91 Unspecified atrial fibrillation; I48.0 Paroxysmal atrial fibrillation; M19.90 Unspecified osteoarthritis, unspecified site; G40.909 Epilepsy, unspecified, not intractable, without status epilepticus; N17.9 Acute kidney failure, unspecified; I13.0 Hypertensive heart and chronic kidney disease with heart failure and stage 1 through stage 4 chronic kidney disease, or unspecified chronic kidney disease; N18.9 Chronic kidney disease, unspecified; I50.30 Unspecified diastolic (congestive) heart failure; R79.9 Abnormal finding of blood chemistry, unspecified; W18.39XA Other fall on same level, initial encounter; Y93.89 Activity, other specified; Y92.89 Other specified places as the place of occurrence of the external cause
CPT/HCPCS: 36415; 70450-TC; 71045-TC-FY; 72125-TC; 72170-TC-FY; 73562-TC-RT-FY; 80053; 81003; 82340; 82570; 83735; 83880; 84100; 84156; 84300; 84484; 85025; 85027; 85610; 85651; 85730; 86140; 86850; 86900; 86901; 87086; 93005; 93010; 96360; 96361; 97116-GP; 97162-GP; 99285-25; G0378